=== PATIENT | female | born 1935 | race Caucasian/White ===

== ENCOUNTER 2016-07-13 15:26 | Inpatient (IN) | payer MEDICARE, BC ==
[2016-07-13] MEDS ORDERED: SODIUM CHLORIDE 0.9% 1,000 ML IV STA (16:06)
--- NOTE | 2016-07-13 16:10 | ED ---
General Adult HPI - General Chief complaint: Neuro Symptoms/Deficit Stated complaint: Poss CVA Time Seen by Provider: 07/13/16 15:59 Source: patient, RN notes reviewed Mode of arrival: wheelchair Limitations: no limitations - History of Present Illness Initial comments: Patient is a pleasant 81-year-old female presenting to the emergency Department with left arm problems. Patient had an episode last night lasting around 30 minutes. Patient had paresthesias with associated weakness and coordination problems of her left arm only. Symptoms then resolved. Patient had another episode one hour ago. Patient states she only had paresthesias and coordination problems this time. No weakness. Symptoms have again resolved after half an hour and currently is symptom-free. Patient does have a history of TIA. No pain. No headache. No confusion. No visual process. No speech problems. Patient questions if she had some difficulty with balance walking this morning. - Related Data Home Medications Medication Instructions Recorded Confirmed Aspirin EC [Ecotrin] 325 mg PO HS 07/13/16 07/13/16 Atorvastatin [Lipitor] 80 mg PO HS 07/13/16 07/13/16 Cholecalciferol [Vitamin D3] 1,000 unit PO HS 07/13/16 07/13/16 Levothyroxine Sodium [Synthroid] 100 mcg PO DAILY 07/13/16 07/13/16 Vit C/E/Zn/Coppr/Lutein/Zeaxan 1 cap PO HS 07/13/16 07/13/16 [Preservision Areds 2 Softgel] Allergies Allergy/AdvReac Type Severity Reaction Status Date / Time No Known Allergies Allergy Verified 07/13/16 15:40 Review of Systems ROS Statement: Those systems with pertinent positive or pertinent negative responses have been documented in the HPI. ROS Other: All systems not noted in ROS Statement are negative. Constitutional: Denies: fever Eyes: Denies: eye pain ENT: Denies: ear pain Respiratory: Denies: cough Cardiovascular: Denies: chest pain Endocrine: Denies: fatigue Gastrointestinal: Denies: abdominal pain Genitourinary: Denies: dysuria Musculoskeletal: Denies: back pain Skin: Denies: rash Neurological: Reports: weakness, paresthesias. Denies: headache, confusion Past Medical History Past Medical History: CVA/TIA, Hyperlipidemia, Thyroid Disorder History of Any Multi-Drug Resistant Organisms: None Reported Past Surgical History: Appendectomy, Tonsillectomy Additional Past Surgical History / Comment(s): thryrodectomy, Past Psychological History: No Psychological Hx Reported Smoking Status: Former smoker Past Alcohol Use History: Occasional General Exam Limitations: no limitations General appearance: alert, in no apparent distress Head exam: Present: atraumatic, normocephalic Eye exam: Present: normal appearance, PERRL, EOMI. Absent: nystagmus ENT exam: Present: normal oropharynx Neck exam: Present: normal inspection Respiratory exam: Present: normal lung sounds bilaterally Cardiovascular Exam: Present: normal rhythm, bradycardia GI/Abdominal exam: Present: soft. Absent: tenderness Extremities exam: Present: normal inspection Neurological exam: Present: alert, oriented X3, CN II-XII intact. Absent: motor sensory deficit Expanded Patient oriented to: Present: person, place, time Speech: Present: fluid speech Cranial nerves: EOM's Intact: Normal, Facial Sensation: Normal Sensory exam: Upper Extremity Light Touch: Normal, Lower Extremity Light Touch: Normal Motor strength exam: RUE: 5, LUE: 5, RLE: 5, LLE: 5 Eye Response: (4) open spontaneously Motor Response: (6) obeys commands Verbal Response: (5) oriented Psychiatric exam: Present: normal affect, normal mood Skin exam: Absent: rash Course Vital Signs 07/13/16 07/13/16 15:27 15:45 Temperature 97.8 F Pulse Rate 61 59 L Respiratory 17 18 Rate Blood Pressure 194/84 167/71 O2 Sat by Pulse 97 97 Oximetry EKG Findings - EKG Comments: EKG Findings:: Sinus bradycardia 54. UT 142. QRS 86. QT 452. QTC 428. Normal axis. Normal QRS. Normal ST-T. Medical Decision Making - Medical Decision Making Patient reevaluated and remained symptom-free. Case discussed in detail with Dr. guidry, who will admit for Dr. Mendoza. Patient updated. - Lab Data Result diagrams: 07/13/16 15:58 07/13/16 15:58 Lab Results 07/13/16 07/13/16 07/13/16 Range/Units 15:58 15:58 15:58 WBC 6.9 (3.8-10.6) k/uL RBC 4.54 (3.80-5.40) m/uL Hgb 13.9 (11.4-16.0) gm/dL Hct 43.0 (34.0-46.0) % MCV 94.7 (80.0-100.0) fL MCH 30.6 (25.0-35.0) pg MCHC 32.3 (31.0-37.0) g/dL RDW 13.7 (11.5-15.5) % Plt Count 207 (150-450) k/uL Neutrophils % 64 % Lymphocytes % 23 % Monocytes % 5 % Eosinophils % 6 % Basophils % 1 % Neutrophils # 4.4 (1.3-7.7) k/uL Lymphocytes # 1.6 (1.0-4.8) k/uL Monocytes # 0.3 (0-1.0) k/uL Eosinophils # 0.4 (0-0.7) k/uL Basophils # 0.0 (0-0.2) k/uL PT 11.2 (9.0-12.0) sec INR 1.1 (<1.1) APTT 24.4 (22.0-30.0) sec Sodium 140 (137-145) mmol/L Potassium 4.5 (3.5-5.1) mmol/L Chloride 106 (98-107) mmol/L Carbon Dioxide 25 (22-30) mmol/L Anion Gap 9 mmol/L BUN 17 (7-17) mg/dL Creatinine 0.81 (0.52-1.04) mg/dL Est GFR (MDRD) Af Amer >60 (>60 ml/min/1.73 sqM) Est GFR (MDRD) Non-Af >60 (>60 ml/min/1.73 sqM) Glucose 93 (74-99) mg/dL Calcium 9.5 (8.4-10.2) mg/dL Total Bilirubin 0.6 (0.2-1.3) mg/dL AST 29 (14-36) U/L ALT 25 (9-52) U/L Alkaline Phosphatase 88 (38-126) U/L Total Protein 6.9 (6.3-8.2) g/dL Albumin 3.8 (3.5-5.0) g/dL - Radiology Data Radiology results: image reviewed (Chest x-ray shows left lower lobe atelectasis. Computed tomography scan the brain shows no acute process. Probable small vessel disease.) Disposition Clinical Impression: Transient cerebral ischemia Disposition: ADMITTED IP TO THIS HOSP
[2016-07-13 16:17] LABS: Basophils % (A) 1 %; CH 30.4; CHCM 32.3; Eosinophils # (A) 0.4 k/uL (0-0.7); Eosinophils % (A) 6 %; HDW 2.26; HGB 13.9 gm/dL (11.4-16.0); Luc # (Auto) 0.12; Luc % (Auto) 2; Lymphocytes # (A) 1.6 k/uL (1.0-4.8); Lymphocytes % (A) 23 %; MCH 30.6 pg (25.0-35.0); MCHC 32.3 g/dL (31.0-37.0); MCV 94.7 fL (80.0-100.0); Mean Platelet Volume 7.9; Monocytes # (A) 0.3 k/uL (0-1.0); Monocytes % (A) 5 %; Neutrophils # (A) 4.4 k/uL (1.3-7.7); Neutrophils % (A) 64 %; RBC 4.54 m/uL (3.80-5.40); RDW 13.7 % (11.5-15.5); WBC 6.9 k/uL (3.8-10.6); WBC (Perox) 6.97
[2016-07-13 16:26] LABS: ALT 25 U/L (9-52); AST 29 U/L (14-36); Alkaline Phosphatase 88 U/L (38-126); Anion Gap 9 mmol/L; Blood Urea Nitrogen 17 mg/dL (7-17); Calcium 9.5 mg/dL (8.4-10.2); Carbon Dioxide 25 mmol/L (22-30); Chloride 106 mmol/L (98-107); Glucose 93 mg/dL (74-99); INR 1.1 (<1.1); Non-African American GFR(MDRD) >60 (>60 ml/min/1.73 sqM); Partial Thromboplastin Time 24.4 sec (22.0-30.0); Potassium 4.5 mmol/L (3.5-5.1); Prothrombin Time 11.2 sec (9.0-12.0); Sodium 140 mmol/L (137-145); Total Bilirubin 0.6 mg/dL (0.2-1.3); Total Protein 6.9 g/dL (6.3-8.2)
[2016-07-13 16:37] LABS: Creatine Kinase 83 U/L (30-135)
--- NOTE | 2016-07-13 16:45 | CT ---
EXAMINATION TYPE: CT brain wo con DATE OF EXAM: 07/13/2016 4:25 PM COMPARISON: NONE HISTORY: Patient complains of left side weakness and numbness. Patient has a history of prior stroke . CT DLP: 955.1 mGycm Automated exposure control for dose reduction was used. FINDINGS: There is no acute intracranial hemorrhage, mass effect, or midline shift identified. The ventricles and sulci are within normal limits in size. Periventricular white matter demyelination is present. T here are cerebral vascular calcifications present. There is likely age-related atrophy. The globes ar e intact and the visualized sinuses are clear. IMPRESSION: No acute intracranial hemorrhage, mass effect, or midline shift is seen. Probable chronic small vesse l ischemia.
--- NOTE | 2016-07-13 16:46 | XR ---
EXAMINATION TYPE: XR chest 2V DATE OF EXAM: 07/13/2016 4:29 PM COMPARISON: NONE HISTORY: Altered mental status TECHNIQUE: Frontal and lateral views of the chest are obtained. FINDINGS: There is no focal air space opacity, pleural effusion, or pneumothorax seen. The cardiac silhouette size is within normal limits. There are overlying cardiac leads. Suspect some minimal pat frances increased density left lung base. Prominent lung volumes may be indicative of COPD. The aorta is dense. The osseous structures are intact. IMPRESSION: There may be left lower lobe atelectasis, follow-up as indicated should pneumonia be ca pected.
[2016-07-13 16:50] LABS: Creatine Kinase MB 1.1 ng/mL (0.0-2.4); Troponin I <0.012 ng/mL (0.000-0.034)
[2016-07-13] MEDS ORDERED: ASPIRIN 325 MG TAB PO STA (16:59)
[2016-07-13 18:59] VITALS: BMI 33.9
[2016-07-13] MEDS: SODIUM CHLORIDE 0.9% 1,000 ML IV SCH (20:11)
[2016-07-14] MEDS: SODIUM CHLORIDE 0.9% 1,000 ML IV SCH ×2 (05:04→17:12)
[2016-07-14] MEDS ORDERED: ASPIRIN 325 MG TAB PO SCH ×2 (09:00→21:00)
[2016-07-14] MEDS: LEVOTHYROXINE 100 MCG TAB PO SCH (09:35)
--- NOTE | 2016-07-14 13:12 | P.CNNES ---
History of Present Illness Consult date: 07/14/16 Requesting physician: Angel Glynn Reason for Consult: CVA/TIA History of Present Illness: Patient is a pleasant 81-year-old female who is being evaluated by the neurology service on 07/14/2016 per the request of Dr. Glynn for CVA/TIA. Patient states she does have history of TIA. While unloading her car, patient reports having an episode of left upper extremity weakness and paresthesia. Patient stated symptoms resolved in less than 15 minutes. She does report that symptoms returned the following morning and she came to [facility] for further evaluation. Patient reports her symptoms are currently resolved. She denies headache or confusion. Patient denies visual difficulties. Patient does states she was unsteady on her feet with ambulation this morning. Patient states she takes aspirin in the home setting. Vital signs on admission, patient was afebrile, pulse rate 63, respiratory rate 17, blood pressure 101/78. Patient's laboratory workup on admission was unremarkable. At the time of my evaluation, patient is resting comfortably in bed and appears to be in no acute distress. Review of Systems REVIEW OF SYSTEMS: Otherwise unremarkable and noncontributory. Past Medical History Past Medical History: CVA/TIA, Hyperlipidemia, Thyroid Disorder History of Any Multi-Drug Resistant Organisms: None Reported Past Surgical History: Appendectomy, Tonsillectomy Additional Past Surgical History / Comment(s): thryrodectomy, Past Anesthesia/Blood Transfusion Reactions: No Reported Reaction Past Psychological History: No Psychological Hx Reported Smoking Status: Former smoker Past Alcohol Use History: Occasional Past Drug Use History: None Reported - Past Family History Father Family Medical History: Myocardial Infarction ([place]) Additional Family Medical History / Comment(s): HAD STENT PLACEMENT IN 2005 OR 2006 AFTER NH IS UNSURE Mother Family Medical History: Memory Impairment, Vascular Disorder Medications and Allergies Home Medications Medication Instructions Recorded Confirmed Type Aspirin EC [Ecotrin] 325 mg PO HS 07/13/16 07/13/16 History Atorvastatin [Lipitor] 80 mg PO HS 07/13/16 07/13/16 History Cholecalciferol [Vitamin D3] 1,000 unit PO HS 07/13/16 07/13/16 History Levothyroxine Sodium [Synthroid] 100 mcg PO DAILY 07/13/16 07/13/16 History Vit C/E/Zn/Coppr/Lutein/Zeaxan 1 cap PO HS 07/13/16 07/13/16 History [Preservision Areds 2 Softgel] Allergies Allergy/AdvReac Type Severity Reaction Status Date / Time No Known Allergies Allergy Verified 07/13/16 15:40 Physical Examination - Vital Signs Vital Signs: Vital Signs Temp Pulse Pulse Resp BP BP Pulse Ox 07/14/16 09:59 62 07/14/16 08:00 96.4 F L 59 L 125/59 96 07/14/16 07:59 56 L 07/14/16 04:00 97.7 F 52 L 17 147/67 96 07/14/16 00:00 57 L 16 07/13/16 23:59 97.1 F L 57 L 16 132/63 96 07/13/16 20:00 97.6 F 63 17 101/78 96 07/13/16 19:59 97.6 F 63 17 101/78 96 07/13/16 17:59 70 16 162/72 07/13/16 17:18 97.4 F L 67 16 157/74 97 07/13/16 17:15 98.5 F 07/13/16 17:06 60 18 169/74 100 Intake and Output 07/13/16 07/14/16 07/14/16 22:59 06:59 14:59 Intake Total 200 1740 240 Balance 200 1740 240 Intake: IV 200 1200 Sodium Chloride 0.9% 1, 200 1200 000 ml @ 100 mls/hr IV . Q10H [facility] Rx#:[id number] Oral 540 240 Other: Voiding Method Toilet Toilet # Voids 1 1 Weight 92.5 kg 91.7 kg PHYSICAL EXAM: GENERAL APPEARANCE: Patient is a well-developed, female who appears to be in no acute distress. HEENT: Normocephalic, atraumatic, no facial asymmetry is seen. Neck is supple with no masses felt. CARDIOVASCULAR: Regular rate and rhythm. ABDOMEN: Nontender, nondistended. EXTREMITIES: Show no edema or clubbing. NEUROLOGICAL EXAM: Patient is awake, alert, and oriented 3. Speech and language are normal. No obvious facial asymmetry is seen on cranial nerve testing. Strength is full in all 4 extremities. No sensory deficit to light touch in all 4 extremities. No seizures or tremors noted. Results - Laboratory Findings CBC and BMP: 07/13/16 15:58 07/13/16 15:58 Assessment and Plan Plan: Impression: 1. CVA/TIA 2. History of TIA 3. Hyperlipidemia 4. Left upper extremity weakness, resolved Recommendations: It does appear patient had episode of left upper extremity weakness and paresthesia. As you recall, CT of the brain showed no acute intracranial hemorrhage, mass effect, or midline shift. CT did show probable chronic small vessel ischemic disease. Patient was on aspirin at home. I will change aspirin to Plavix 75 mg by mouth daily. I will order an EEG, fasting lipid panel, and serum homocysteine level. I will order an MRI of the brain and carotid Dopplers. Continue neurological checks. I recommend physical therapy to evaluate and treat. Patient does deny difficulty swallowing. I will continue to follow with you. Further recommendations to follow. Thank you for allowing me to participate in the care of your patient. Feel free to call with any questions or concerns. I performed an examination of the patient and discussed the management with the MORTICIAN INVESTIGATOR. I have reviewed the MORTICIAN INVESTIGATOR notes and agree with the findings and plan of care.
[2016-07-14 15:00] LABS: Glucose,Whole Blood 90 mg/dL (75-99)
[2016-07-14] MEDS: CLOPIDOGREL 75 MG TAB PO SCH (17:11)
[2016-07-14] MEDS ORDERED: RX INFO: IV CONTRAST WAS GIVEN 1 EACH MISC MISCELLANE PRN (18:54)
[2016-07-14] MEDS: CHOLECALCIFEROL 1,000 UNIT TAB PO SCH (19:51)
[2016-07-14] MEDS: ENOXAPARIN 40 MG/0.4 ML SYRINGE SQ SCH (19:51)
[2016-07-14] MEDS: ATORVASTATIN 80 MG TAB PO SCH (19:51)
--- NOTE | 2016-07-14 20:07 | CT ---
EXAMINATION TYPE: CT angio head neck DATE OF EXAM: 07/14/2016 7:51 PM COMPARISON: NONE HISTORY: Patient complains of left side body weakness and numbness. CT DLP: 361.1 mGycm Automated exposure control for dose reduction was used. TECHNIQUE: Performed with IV Contrast, patient injected with 65 mL of Omnipaque 350. There are 3-D post processed images.. FINDINGS: There is normal branching pattern of the great vessels on the aortic arch. Thoracic aorta is atheroma tous. There is bilateral patency of the vertebral arteries. There is bilateral patency of the common internal and external carotid arteries. There is mild plaque at the carotid artery bifurcations with luminal narrowing of 10-20%. There is no evidence of dissection. There is arterial flow in the vertebrobasilar artery system. There is arterial flow in the anterior m iddle and posterior cerebral arteries. There is normal contrast opacification of the venous sinuses. I see no sign of aneurysm or neovascularity. IMPRESSION: MILD PLAQUE AT THE CAROTID ARTERY BIFURCATIONS. NO EVIDENCE OF HEMODYNAMICALLY SIGNIFICANT STENOSIS. NEGATIVE CT ANGIOGRAM OF THE BRAIN.
--- NOTE | 2016-07-14 21:46 | HP ---
DATE OF ADMISSION: 07/13/2016 PRESENTING COMPLAINT: Unsteady. HISTORY OF PRESENTING COMPLAINT: A very pleasant 81-year-old patient of Dr. Mendoza with prior history of stable conditions include hyperlipidemia, hypothyroid. Patient 2 days ago developed left arm weakness and actually got better. Let it go through next day, that is yesterday. Again after lunch noticed the left arm weakness. At the same time, she noticed that she was stumbling and also numbness in the left side of the face. Numbness is still present on the face and left arm weakness not completely recovered. It has been quite well over 24 hours. After when I examined the patient earlier today and prior to my dictation, the nurse called me, the patient had another episode of the same date. The being admitted for a stroke. Initial CT scan was negative. Patient did not report any change in vision. No change in speech. Able to swallow. REVIEW OF SYSTEMS: CONSTITUTIONAL: None. HEENT: None. RESPIRATORY: None. CARDIOVASCULAR: None. GASTROINTESTINAL: None. GENITOURINARY: None. MUSCULOSKELETAL: None. Dermatological: None. HEMATOLOGICAL: None. LYMPHATIC: None. PSYCHIATRY: None. NEUROLOGICAL: As above. Past medical history of TIA, hyperlipidemia, hyperthyroid leading to then hypothyroidism. Past surgeries thyroidectomy, tonsillectomy, appendectomy. SOCIAL HISTORY: Earl lives by herself. Smoked for 33 years; stopped 27 years ago. Alcohol occasional. FAMILY HISTORY: Myocardial infarction. Home medications: 1. PreserVision softgel 1 capsule p.o. q.h.s. 2. Synthroid 100 mcg p.o. daily. 3. Vitamin D3 1000 units p.o. q.h.s. 4. Lipitor 80 mg q.h.s. 5. Aspirin 325 mg p.o. q.h.s. ALLERGIES: None. PHYSICAL EXAMINATION: Vital signs on presentation: Temperature 97.8, pulse 61, respiratory rate 17, blood pressure 167/71, pulse ox 97% on room air. GENERAL APPEARANCE: Well built, BMI of 32.6, sitting up, not in distress. EYES: Pupils equal. Conjunctivae normal. HEENT: Oral cavity normal. NECK: JVD not raised. RESPIRATORY: Effort normal. LUNGS: Normal. CARDIOVASCULAR: First and second sounds are normal. No edema. ABDOMEN: Soft, nontender. Liver and spleen not palpable. LYMPHATIC: No lymph nodes palpable in neck or axillae. PSYCHIATRY: Alert and oriented times three. Mood and affect normal. NEUROLOGICAL: Pupils equal. Cranial nerves grossly intact except for decreased sensation left side of her face. NEUROLOGICAL: Power in the left arm is 4/5. Otherwise, reflexes are equal. The patient was having some unsteadiness of gait earlier. INVESTIGATIONS: White count 6.9. Hemoglobin 13.9. Potassium 4.5, BUN and creatinine are normal. EKG shows normal sinus rhythm. CT scan of the brain nil acute. ASSESSMENT: 1. Acute stroke in the distribution of the right middle cerebral artery though this could well be a left brainstem ischemia given involving the left side of the face likely ischemic, in nature in a right-handed patient. 2. Essential hypertension, uncontrolled on presentation. 3. Hyperlipidemia. 4. Hypothyroidism. 5. Sinus bradycardia physiological. PLAN: Patient is already on Lipitor. The patient switched from aspirin to Plavix. I will order a CT angiogram of the brain. Neuro checks are in place. Neurology; Dr. Garvey was consulted. Also patient's TSH and lipid panel has been ordered. PT/OT has been being consulted. Care was discussed with the patient. Copy to Dr. Mendoza.
--- NOTE | 2016-07-15 09:00 | P.CRDCN ---
History of Present Illness Consult date: 07/15/16 Requesting physician: Angel Glynn Reason for Consult (text): CVA Chief complaint: left-sided arm and leg weakness History of present illness: This is a pleasant 81-year-old female with history of coronary artery disease with prior stent placement in 2007, hyperlipidemia, hypothyroidism prior thyroidectomy, who follows with Dr. Ramesh in the office. She presents to the hospital on this occasion with symptoms of left arm numbness and weakness and associated left leg weakness.The patient denies any difficulty in speaking, no visual disturbance.She denies any shortness of breath or chest discomfort. Patient states she recently returned home from a long trip, had no symptoms while away.EKG on presentation here showed a normal sinus rhythm, sinus bradycardia with no acute changes.CAT scan of the brain was performed which did not reveal any acute intracranial hemorrhage mass effect or midline shift.CTA of the head and neck was performed which revealed mild plaque at the carotid artery bifurcations with no evidence of hemodynamically significant stenosis. Negative CT angiogram of the brain. Chest x-ray suggests possible left lower lobe atelectasis.Blood pressure on arrival here 194/84 with a heart rate in the 60s, 97% on room air.pressure this morning 124/60 with a heart rate in the 60s. At the time of my examination this morning, patient continues to have mild weakness in the left arm, complains of feeling tired, otherwise back to her normal self. Patient was noted on the monitor to have a run of wide complex tachycardia, 10 beat.Laboratory data was reviewed, potassium 4.5, BUN 17 , creatinine 0.8. Troponin 0.012. TSH 1.5. Past Medical History Past Medical History: CVA/TIA, Hyperlipidemia, Thyroid Disorder History of Any Multi-Drug Resistant Organisms: None Reported Past Surgical History: Appendectomy, Tonsillectomy Additional Past Surgical History / Comment(s): thryrodectomy, Past Anesthesia/Blood Transfusion Reactions: No Reported Reaction Past Psychological History: No Psychological Hx Reported Smoking Status: Former smoker Past Alcohol Use History: Occasional Past Drug Use History: None Reported - Past Family History Father Family Medical History: Myocardial Infarction (MD) Additional Family Medical History / Comment(s): HAD STENT PLACEMENT IN 2005 OR 2006 AFTER MD IS UNSURE Mother Family Medical History: Memory Impairment, Vascular Disorder Medications and Allergies Home Medications Medication Instructions Recorded Confirmed Type Aspirin EC [Ecotrin] 325 mg PO HS 07/13/16 07/13/16 History Atorvastatin [Lipitor] 80 mg PO HS 07/13/16 07/13/16 History Cholecalciferol [Vitamin D3] 1,000 unit PO HS 07/13/16 07/13/16 History Levothyroxine Sodium [Synthroid] 100 mcg PO DAILY 07/13/16 07/13/16 History Vit C/E/Zn/Coppr/Lutein/Zeaxan 1 cap PO HS 07/13/16 07/13/16 History [Preservision Areds 2 Softgel] Allergies Allergy/AdvReac Type Severity Reaction Status Date / Time No Known Allergies Allergy Verified 07/13/16 15:40 Physical Exam Vitals: Vital Signs Temp Pulse Resp BP Pulse Ox 07/15/16 04:00 98 F 64 16 124/67 98 07/15/16 00:00 60 16 138/74 97 07/14/16 19:59 98.2 F 55 L 16 142/68 96 07/14/16 17:59 63 07/14/16 15:59 52 L 07/14/16 13:59 49 L 07/14/16 12:00 61 140/68 96 07/14/16 11:59 51 L 07/14/16 09:59 62 Intake and Output 07/14/16 07/15/16 07/15/16 22:59 06:59 14:59 Intake Total 420 Balance 420 Intake: IV 300 Sodium Chloride 0.9% 1, 300 000 ml @ 100 mls/hr IV . Q10H [facility] Rx#:[id number] Oral 120 Other: # Voids 1 Weight 92.1 kg PHYSICAL EXAMINATION: HEENT: [Head is atraumatic, normocephalic. Pupils equal, round. Neck is supple. There is no elevated jugular venous pressure.] HEART EXAMINATION:heart S1 and S2 systolic murmur is heard. CHEST EXAMINATION:[ Lungs are clear to auscultation and precussion. No chest wall tenderness is noted on palpation or with deep breathing.] ABDOMEN: [ Soft, nontender. Bowel sounds are heard. No organomegaly noted]. EXTREMITIES:[ 2+ peripheral pulses with no evidence of peripheral edema and no calf tenderness noted].Mild weakness noted in the left upper extremity. NEUROLOGIC [patient is awake, alert and oriented -3.] . Results 07/13/16 15:58 07/13/16 15:58 Lipids 07/15/16 Range/Units 05:26 Triglycerides 38 (<150) mg/dL Cholesterol 117 (<200) mg/dL HDL Cholesterol 56 (40-60) mg/dL Current Medications Generic Name Dose Route Start Last Admin Trade Name Freq PRN Reason Stop Dose Admin Atorvastatin Calcium 80 mg 07/14/16 21:00 07/14/16 19:51 Lipitor PO 80 mg HS [facility] Administration Cholecalciferol 1,000 unit 07/14/16 21:00 07/14/16 19:51 Vitamin D3 PO 1,000 unit HS [facility] Administration Clopidogrel Bisulfate 75 mg 07/14/16 13:15 07/14/16 17:11 Plavix PO 75 mg DAILY [facility] Administration Enoxaparin Sodium 40 mg 07/14/16 19:00 07/14/16 19:51 Lovenox SQ 40 mg DAILY [facility] Administration Levothyroxine Sodium 100 mcg 07/14/16 09:00 07/14/16 09:35 Synthroid PO 100 mcg DAILY [facility] Administration Miscellaneous Information 1 each 07/14/16 18:54 Rx Info: Iv Contrast Was Given MISCELLANE 07/16/16 18:54 DAILY PRN Per Protocol Intake and Output 07/14/16 07/15/16 07/15/16 22:59 06:59 14:59 Intake Total 420 Balance 420 Intake: IV 300 Sodium Chloride 0.9% 1, 300 000 ml @ 100 mls/hr IV . Q10H [facility] Rx#:[id number] Oral 120 Other: # Voids 1 Weight 92.1 kg EKG Interpretations (text) EKG shows normal sinus rhythm with no acute changes. Assessment and Plan Plan: assessment and plan #1CVA/TIA #2 history of TIA #3 hyperlipidemia #4 hypothyroidism #5 left upper and lower extremity weakness, mostly resolved this morning. #6 history of myocardial infarction with stent placement in 2007 #7 10 complex run of wide-complex tachycardia. Plan We will obtain an echocardiogram with Doppler study. We will continue to monitor for any tachycardia or bradycardia arrhythmias.the patient has not been on a beta kasie in the past because of bradycardia, we will start 12-1/2 mg of Lopressor now. She has also been advised to undergo a transesophageal echocardiographic study, this will be performed tomorrow by Dr. Ramesh. The risks and the benefits were explained to the patient in detail Further recommendations to follow. DNP note has been reviewed, I agree with a documented findings and plan of care. Patient was seen and examined.
[2016-07-15] MEDS: ENOXAPARIN 40 MG/0.4 ML SYRINGE SQ SCH (09:22)
[2016-07-15] MEDS: LEVOTHYROXINE 100 MCG TAB PO SCH (09:22)
[2016-07-15] MEDS: CLOPIDOGREL 75 MG TAB PO SCH (09:22)
--- NOTE | 2016-07-15 10:46 | ECHOF ---
Referral Reason:cva MEASUREMENTS -------- HEIGHT: 165.1 cm WEIGHT: 92.1 kg BP: IVSd: 0.9 cm (0.6 - 1.1) LVIDd: 3.4 cm (3.9 - 5.3) LVPWd: 1.0 cm (0.6 - 1.1) IVSs: 1.7 cm LVIDs: 1.7 cm LVPWs: 1.8 cm Ao Diam: 3.3 cm (2.0 - 3.7) AV Cusp: 1.6 cm (1.5 - 2.6) LA Diam: 3.4 cm (2.7 - 3.8) MV EXCURSION: 12.495 mm (> 18.000) MV EF SLOPE: 73 mm/s (70 - 150) EPSS: 0.8 cm MV E Spencer: 0.95 m/s MV DecT: 255 ms MV A Spencer: 0.81 m/s MV E/A Ratio: 1.17 RAP: 5.00 mmHg RVSP: 24.24 mmHg FINDINGS -------- Sinus rhythm. This was a technically good study. Left ventricular wall thickness is normal. Overall left ventricular systolic function is normal with, an EF between 55 - 60 %. The right ventricle is normal in size and function. The left atrium is normal in size. The right atrium is normal in size. Aortic valve is trileaflet and is mildly thickened. The mitral valve leaflets are mildly thickened. Mild mitral regurgitation is present. Mild tricuspid regurgitation present. The right ventricular systolic pressure, as measured by Doppler, is 24.24mmHg. Pulmonic valve appears structurally normal. The aortic root size is normal. The pericardium is normal. CONCLUSIONS -------- 1. Sinus rhythm. 2. Mild mitral regurgitation is present. 3. Mild tricuspid regurgitation present. 4. The right ventricular systolic pressure, as measured by Doppler, is 24.24mmHg. 5. Pulmonic valve appears structurally normal. 6. The aortic root size is normal. 7. The pericardium is normal. 8. This was a technically good study. 9. Left ventricular wall thickness is normal. 10. Overall left ventricular systolic function is normal with, an EF between 55 - 60 %. 11. The right ventricle is normal in size and function. 12. The left atrium is normal in size. 13. The right atrium is normal in size. 14. Aortic valve is trileaflet and is mildly thickened. 15. The mitral valve leaflets are mildly thickened. SENIOR STRATEGY MANAGER: Xuan Rice RDCS
[2016-07-15] MEDS: METOPROLOL TARTRATE 12.5 MG TAB PO SCH ×2 (12:06→12:34)
--- NOTE | 2016-07-15 12:06 | CDI ---
In responding to this query, please exercise your independent professional judgment. The [facility] Coding Staff and Clinical Documentation Specialists appreciate your assistance in clarifying documentation, maintaining compliance with coding guidelines, accurately documenting patients condition and capturing severity of illness. The fact that a question is asked does not imply that any particular answer is desired or expected. Communication forms are a method of clarifying documentation and are not made part of the Legal Health Record. Thank you in advance for your clarification. Last Revision, January 2015 Greg Mensah [address] [facility] [place] [address] Documentation Clarification Form Date: 07/15/2016 11:46:00 AM From: Alexander Harley, RN, BSN, CDI Admit Date: 07/13/2016 4:52:00 PM Patient Name: Nhi Espinal Visit Number: [id number] Dr. Angel Glynn: History: 81 yo female with a history of TIA, hyperlipidemia, CAD and former smoker presents with c/o left arm weakness, stumbling and left facial numbness. She is being worked up for an acute stroke in the distribution of the right middle cerebral artery. Clinical Indicators: Per cardiology note: the patient presented with "left upper and left lower extremity weakness". She has unsteadiness of gait. Treatment: neurology consult, Plavix, neuro checks and PT In order to capture the severity of condition, please clarify if any of the following are present: Hemiplegia or Hemiparesis. If so, please specify if spastic or flaccid, if known. Ataxia Apraxia (specify gait, limb, etc) Monoplegia Other, please specify Unable to determine Please document in your progress notes and discharge summary in order to capture severity of illness and risk of mortality. Include clinical findings that support your diagnosis. FYI: Press F11 to launch patient chart. Place X here if this finding has no clinical significance, is not applicable or if you are not able to provide any additional documentation. MTDD
--- NOTE | 2016-07-15 15:58 | P.PN ---
Subjective Principal diagnosis: Patient is a pleasant 81-year-old female who is being followed by the neurology service for CVA. Patient does have history of TIA. Patient presented to [facility] emergency room with left-sided weakness and left facial numbness. Patient states symptoms have resolved except for mild left facial paresthesia. Patient states she was taking aspirin in the home setting. CT of the brain showed no acute intracranial hemorrhage but did show probable chronic small vessel ischemia. Patient is awaiting her MRI. CTA was done and showed mild plaque at the carotid artery bifurcation. Carotid Doppler showed no evidence of hemodynamically significant stenosis. Negative CT angiogram of the brain. EEG was done and is normal. Reportedly, patient had a run of wide complex tachycardia and cardiology was consulted. Patient will have transesophageal echocardiogram done tomorrow. At the time of my evaluation , patient is sitting up in the chair at the bedside and appears to be in no acute distress. Objective - Vital Signs Vital signs: Vital Signs Temp 96.9 F L 07/15/16 11:00 Pulse 60 07/15/16 11:00 Resp 18 07/15/16 11:00 BP 154/70 07/15/16 11:00 Pulse Ox 98 07/15/16 11:00 Intake & Output 07/14/16 07/15/16 07/15/16 18:59 06:59 18:59 Intake Total 580 300 180 Balance 580 300 180 Weight 92.1 kg Intake: IV 300 Sodium Chloride 0.9% 1, 300 000 ml @ 100 mls/hr IV . Q10H MELVI Rx#:[id number] Intake, IV Titration 100 Amount Sodium Chloride 0.9% 1, 100 000 ml @ 100 mls/hr IV . Q10H MELVI Rx#:[id number] Oral 480 180 Other: Voiding Method Toilet # Voids 1 1 - Exam PHYSICAL EXAM: GENERAL APPEARANCE: Patient is a well-developed, female who appears to be in no acute distress. HEENT: Normocephalic, atraumatic, no facial asymmetry is seen. Neck is supple with no masses felt. CARDIOVASCULAR: Regular rate and rhythm. ABDOMEN: Nontender, nondistended. EXTREMITIES: Show no edema or clubbing. NEUROLOGICAL EXAM: Patient is awake, alert, and oriented 3. Speech and language are normal. No obvious facial asymmetry seen on cranial nerve testing. Patient does report mild left facial paresthesia that continues. Strength is full in all 4 extremities. No sensory deficit to light touch in all 4 extremities. No seizures or tremors noted. - Labs CBC & Chem 7: 07/13/16 15:58 07/13/16 15:58 Assessment and Plan Plan: Impression: 1. CVA/TIA 2. History of TIA 3. Hyperlipidemia 4. Left upper extremity weakness, resolved Recommendations: It does appear patient had episode of left sided weakness and paresthesia. As you recall, CT of the brain showed no acute intracranial hemorrhage, mass effect, or midline shift. CT did show probable chronic small vessel ischemic disease. CTA showed no evidence of hemodynamically significant stenosis. Negative CT angiogram of the brain. I recommend patient continue Plavix 75 mg by mouth daily. EEG is normal. Her fasting lipid panel is normal and I recommend continuing on statin therapy. Serum homocysteine level is pending. MRI of the brain will be done this evening. Continue neurological checks. I recommend physical therapy to evaluate and treat. Patient denies difficulty swallowing. Continue cardiology workup. I will continue to follow with you. Further recommendations to follow. I performed an examination of the patient and discussed the management with the FURNITURE INSTALLER. I have reviewed the FURNITURE INSTALLER notes and agree with the findings and plan of care.
--- NOTE | 2016-07-15 16:58 | MR ---
EXAMINATION TYPE: MR brain wo con DATE OF EXAM: 07/15/2016 4:48 PM COMPARISON: NONE HISTORY: Left sided weakness/numbness, hx of strokes CONTRAST: Performed utilizing mL intravenous gadolinium contrast. TECHNIQUE: Multiplanar, multiecho imaging on a 3.0 Sully magnet is performed through the brain. Stud y is performed within 24 hours of arrival to the hospital. The craniovertebral junction is normal. The pituitary is normal. Diffusion-weighted imaging is performed. There are 2 small areas of hyperintensity within the right centrum semiovale compatible with acute ischemic changes. Couple of more punctate hyperintensities ar e slightly more anterior Periventricular white matter hyperintensities are present on T2 and inversion recovery weighted seque nces. Findings can be compatible with chronic white matter changes. Ventricles and sulci are prominent for the patient age. IMPRESSIONS: 1. There are 2-3 acute ischemic changes within the deep white matter of the right centrum semiovale i dentified on diffusion-weighted imaging. 2. There is extensive chronic appearing white matter ischemic changes in the periventricular white ma tter bilaterally.
[2016-07-15] MEDS: ATORVASTATIN 80 MG TAB PO SCH (20:50)
[2016-07-15] MEDS: CHOLECALCIFEROL 1,000 UNIT TAB PO SCH (20:50)
--- NOTE | 2016-07-15 23:20 | EEG ---
DATE OF SERVICE: 07/15/2016 REASON FOR TESTING: Stroke. DESCRIPTION OF THE PROCEDURE: This EEG was performed using a 21-channel digital electroencephalograph, following international 10-20 system. DESCRIPTION OF THE RECORDING: From the beginning of the tracing, and with the patient's eyes closed, the background rhythm was mostly consisting of 9 to 10 Hz alpha frequency in the posterior occipital leads. No obvious asymmetry is seen. Photic stimulation was performed with no driving response seen. No pathological waves were elicited. Hyperventilation was not performed. Rare lead artifacts are seen. Movement artifacts are seen later in the tracing. The patient remains awake throughout the tracing. No epileptiform discharges were seen. Her EKG lead showed a regular rate and rhythm. INTERPRETATION: This awake EEG can be considered within normal limits. There was no asymmetry seen. No epileptiform discharges were noticed. The absence of epileptiform discharges does not rule out the diagnosis of epilepsy; therefore clinical correlation is recommended.
--- NOTE | 2016-07-16 07:21 | PN ---
DATE OF SERVICE: 07/15/2016 PRESENTING COMPLAINT: Recurrent left arm weakness, left sided weakness. INTERVAL HISTORY: This is a patient presented with recurrent weakness on the left side. Patient still has some weakness of the left side. CT angiogram from yesterday was negative but MRI did show evidence of 2 to 3 areas of infarct, even though small. Patient's not feeling back to herself. Review of systems done for constitutional, cardiovascular, GI, pulmonary, neurological; relevant findings as above. Current medications are reviewed and include Plavix and Lipitor. On examination, temperature 98.6, pulse 61, respiration 16, blood pressure 155/70, pulse ox 98% on room air. GENERAL APPEARANCE: Sitting up, not in distress. EYES: Pupils equal. Conjunctivae normal. NECK: JVD not raised. Mass not palpable. RESPIRATORY: Effort normal. LUNGS: Clear. CARDIOVASCULAR: First and second sounds normal. No edema. ABDOMEN: Soft, nontender. Liver and spleen not palpable. PSYCHIATRY: Alert and oriented x3. Mood and affect normal. NEUROLOGICAL: Power in the left side is 4/5. INVESTIGATIONS: MRI showing two to three small ischemic changes. TSH is normal. LDL 53. ASSESSMENT: 1. Acute stroke reflecting in the right ( ) in a right-handed patient, need to rule out embolic cause. 2. Essential hypertension. 3. Hyperlipidemia. 4. Hypothyroidism. 5. Sinus bradycardia physiological. PLAN: Continue current medication and treatment plan. Looks like Dr. Garvey has ordered a PATTIE. We will proceed with the same as it ( ) by the patient. The patient's 2-D echocardiogram was unremarkable.
[2016-07-16] MEDS ORDERED: SODIUM CHLORIDE 0.9% 1,000 ML IV ONE (07:25)
[2016-07-16] MEDS: BENZOCAINE SPRAY 100 APPLIC/CAN MUCOUS MEM ONE ×2 (07:35→08:01)
[2016-07-16] MEDS ORDERED: fentaNYL (PF) 50 MCG/ML 2 ML AMP IV ONE (08:00)
[2016-07-16] MEDS ORDERED: MIDAZOLAM 2 MG/2 ML VIAL IV ONE (08:00)
[2016-07-16] MEDS ORDERED: SODIUM CHLORIDE 0.9% 1,000 ML IV SCH (08:15)
--- NOTE | 2016-07-16 08:23 | P.PCN ---
Date of Procedure: 07/16/16 Preoperative Diagnosis: recurrent CVA Postoperative Diagnosis: The same. Procedure(s) Performed: PATTIE( Transoesophageal echocardiogram) Description of Procedure: INDICATION : This 81-year-old female has been having recurrent symptoms of TIA/ CVA. Carotid duplex study did not reveal any significant local pathology. Patient is advised to have PATTIE examination CONSENT:verbal consent was obtained from the patient PROCEDURE:patient was brought to the lab in a fasting state. She was prepped and draped in the usual fashion. The throat was sprayed with Hurricaine. Patient was given IV Versed and fentanyl for sedation. She got 1 mg of Versed and 50 mg of fentanyl. A lubricated Omni probe was introduced into the oropharynx and was advanced into the esophagus. Multiple views were obtained both from the esophagus and stomach.Color Doppler study was performed. Saline bubble injection was also performed. No immediate complications. Conscious sedation: The duration of the sedation was about 10 minutes FINDINGS:The aortic valve is trileaflet which seemed to function normally with trace aortic regurgitation.The mitral valve appears be normal with about 1plus mitral regurgitation. The tricuspid valve appeared to be normal. The interatrial septum appeared to be intact without any spontaneous shunt. Injection of the saline bubble injections did not reveal any evidence of shunt across the interatrial septum. Left atrial appendage appeared to be free of any clot. Left ankle function appear to be normal. The aorta showed moderate plaque. IMPRESSION:#1. No PFO #2. No clot in left atrial appendage #3. 1-2+ mitral regurgitation #4. Moderate plaque in the aorta #5. Preserved LV function PLAN:continue antiplatelet agents and lipid-lowering agents. Optimal control of blood pressure.
[2016-07-16] MEDS: CLOPIDOGREL 75 MG TAB PO SCH (08:55)
[2016-07-16] MEDS: ENOXAPARIN 40 MG/0.4 ML SYRINGE SQ SCH (08:55)
[2016-07-16] MEDS: LEVOTHYROXINE 100 MCG TAB PO SCH (08:55)
[2016-07-16] MEDS: METOPROLOL TARTRATE 12.5 MG TAB PO SCH ×2 (08:55→09:16)
[2016-07-16 09:03] VITALS: RESP 18
[2016-07-16 11:51] VITALS: BP 146/65; PULSE 72; TEMP 97
--- NOTE | 2016-07-16 21:42 | P.PN ---
Subjective Principal diagnosis: CVA Patient is an 81-year-old female being followed by neurology for CVA. Patient does have a history of TIA. Patient presented to the emergency room with left-sided weakness and left-sided facial numbness. Symptoms resolved except for mild left facial paresthesia. facial paresthesias still present today. Patient was taking aspirin at home. CT of the brain noted no acute intracranial hemorrhage but did show chronic small vessel ischemia. CTA was conducted and showed mild plaque at the carotid artery bifurcation. Carotid Doppler showed no hemodynamically significant stenosis. EEG was normal. Patient did have an episode of wide complex tachycardia and cardiology was consulted. Patient did have a PATTIE which was negative. MRI of the brain noted 2 -3 areas of deep white matter ischemic changes. Also noted were extensive chronic white matter ischemic changes bilaterally. Patient was supine in bed, resting in no acute distress. Patient was alert and oriented 3. Objective - Vital Signs Vital signs: Vital Signs Temp 97 F L 07/16/16 11:50 Pulse 72 07/16/16 11:50 Resp 18 07/16/16 11:50 BP 146/65 07/16/16 11:50 Pulse Ox 98 07/16/16 11:50 Intake & Output 07/16/16 07/16/16 07/17/16 06:59 18:59 06:59 Intake Total 340 Balance 340 Weight 90.9 kg Intake: Intake, IV Titration 120 Amount Sodium Chloride 0.9% 1, 120 000 ml @ 20 mls/hr IV . Q24H MELVI Rx#:[id number] Oral 220 Other: Voiding Method Toilet # Voids 1 - Exam Constitutional: AOx3, cooperative Head: NC/AT Throat: Supple, no masses Respiratory: No increased work of breathing Cardiac: Regular rate and Rhythm GI: non tender, non distended Musculoskeletal: Physician Office Rep strengths are equal bilaterally 5/5, Lower extremity strengths are equal bilaterally at 5/5. Neurological: CN II-XII in tact, patient was AOx3, speech and language are normal, no unilateralizing weakness, no seizure activity note on physical exam. Mild left facial paresthesia. Integementary: no rash, no erythema Psychiatric: mood and affect appropriate - Constitutional Constitutional Comment(s): all systems not noted in the HPI are negative. - Labs CBC & Chem 7: 07/13/16 15:58 07/13/16 15:58 Assessment and Plan (1) White matter changes Status: Acute (2) CVA (cerebral vascular accident) Status: Acute Plan: Patient does appear to have suffered a CVA. With the exception of left facial paresthesias that is mild, the patient's presenting symptoms have resolved. Imaging does reflect that on MRI there was noted chronic small vessel ischemic changes within the white matter the right centrum semiovale. Also noted was extensive white matter changes that appear to be chronic bilaterally in the white matter. Patient will continue Plavix at existing dose and frequency. Continue statin therapy at existing dose and frequency. Physical therapy has been consult on the patient. Status: patient is cleared from a neurological standpoint for discharge. Patient to be advised to contact our office for a follow-up appointment within 10-14 business days. Medications be continued as noted above. I discussed the patient's pertinent medical information with Dr. Garvey. He agrees with the plan of care as implemented.
--- NOTE | 2016-07-17 22:59 | DS ---
DATE OF ADMISSION: 07/13/2016 DATE OF DISCHARGE: 07/16/2016 FINAL DIAGNOSES: 1. Acute stroke acute stroke in a right-handed patient, likely ischemic, possibly in the brainstem. 2. Essential hypertension. 3. Hyperlipidemia. 4. Hypothyroidism. 5. Sinus bradycardia, physiological. HOSPITAL COURSE: This patient presented with weakness on the left side, numbness on the left side of the face. Patient did undergo EEG that was negative. CT angio brain was unremarkable. Two-D echo showed preserved LV function. MRI of the brain showed 2 to 3 acute ischemic ( ) in the deep white matter of the right centrum semiovale. PATTIE came back to be negative. Patient's symptoms are much improved by the time of discharge. LDL was 53. Patient was seen by marianna Mart to be discharged. Care was discussed in detail with patient. On examination, weakness of the left side greatly improved. Some weakness still present in the left arm 4/5. DISCHARGE MEDICATIONS: 1. Lipitor 80 mg q.h.s. 2. Vitamin D3, 1000 units p.o. q.h.s. 3. Synthroid 100 mcg p.o. daily. 4. PreserVision AREDS 2 soft gel 1 capsule q.h.s. 5. Plavix 75 mg a day. 6. Zestoretic 01/09.5, 1 tablet daily. Follow up with Dr. Mendoza in 1 week and this is a patient of Dr. Barbosa. She will follow up with him in 10 days. Discharge planning more than 35 minutes.
== END 2016-07-16 17:06 | disposition home or self-care (01) | DRG 65 ==
LOC: EC 15:26 → 6SEL 16:52
PROVIDERS: ADMIT Hospitalist; ATTEND Hospitalist
PROC: B24BZZ4 Ultrasonography of Heart with Aorta, Transesophageal (ICD-10-PCS; principal; 2016-07-16 07:30)
DX: I63.511 Cerebral infarction due to unspecified occlusion or stenosis of right middle cerebral artery (principal); G81.94 Hemiplegia, unspecified affecting left nondominant side; R00.1 Bradycardia, unspecified; I34.0 Nonrheumatic mitral (valve) insufficiency; I63.9 Cerebral infarction, unspecified; R29.700 NIHSS score 0; E78.5 Hyperlipidemia, unspecified; E89.0 Postprocedural hypothyroidism; I10 Essential (primary) hypertension; I25.2 Old myocardial infarction; I25.10 Atherosclerotic heart disease of native coronary artery without angina pectoris; Z95.5 Presence of coronary angioplasty implant and graft; Z86.73 Personal history of transient ischemic attack (TIA), and cerebral infarction without residual deficits; Z87.891 Personal history of nicotine dependence; Z79.899 Other long term (current) drug therapy; Z79.82 Long term (current) use of aspirin
CPT/HCPCS: 36415; 70450; 70496; 70498; 70551; 71020; 80053; 80061; 82550; 82553; 83090; 84443; 84484; 85025; 85610; 85730; 93005; 93306; 93312; 93320; 93325; 95819; 96360; 99285

== ENCOUNTER 2016-08-04 12:33 | Emergency (ER) | payer MEDICARE, BC ==
[2016-08-04] MEDS ORDERED: NITROGLYCERIN OINT 1 INCH/GM PACKET TOPICAL STA (12:42)
[2016-08-04] MEDS ORDERED: ASPIRIN 81 MG CHEW PO STA (12:42)
--- NOTE | 2016-08-04 12:44 | ED ---
General Adult HPI - General Stated complaint: Hypertension Time Seen by Provider: 08/04/16 12:35 Source: RN notes reviewed - History of Present Illness Initial comments: This is an 81-year-old female presents emergency Department with a recent TIA and hypertension. Patient was going to the pharmacy to get her hypertensive medication which is new and she was having some severe headaches that were intermittent but continue to occur on the left side of her head. Patient then became lightheaded and started having chest pressure lasted 15-20 minutes. Patient did not take her new hypertensive meds. Patient states her systolic blood pressure was in the 190s. Patient states the chest pressure finally went away when she got the ambulance on oxygen. Patient currently denies any symptoms whatsoever. Patient states headache is gone and so is the chest pressure at this time. Patient denied any radiation of the chest pain patient denies any shortness of breath. Patient denies any diaphoresis. Patient denies nausea vomiting or diarrhea. Patient denied any visual disturbance or speech disturbance. Patient denies any numbness weakness. - Related Data Home Medications Medication Instructions Recorded Confirmed Atorvastatin [Lipitor] 80 mg PO HS 07/13/16 08/04/16 Cholecalciferol [Vitamin D3] 1,000 unit PO HS 07/13/16 08/04/16 Levothyroxine Sodium [Synthroid] 100 mcg PO DAILY 07/13/16 08/04/16 Vit C/E/Zn/Coppr/Lutein/Zeaxan 1 cap PO HS 07/13/16 08/04/16 [Preservision Areds 2 Softgel] Aspirin [Adult Low Dose Aspirin EC] 81 mg PO DAILY 08/04/16 08/04/16 Biotin 5 mg PO DAILY 08/04/16 08/04/16 Nitroglycerin Sl Tabs [Nitrostat] 1 tab PO Q5M PRN 08/04/16 08/04/16 Previous Rx's Medication Instructions Recorded Clopidogrel [Plavix] 75 mg PO DAILY #30 tab 07/16/16 Lisinopril-Hctz 10-12.5 mg 1 tab PO DAILY #30 tab 07/16/16 [Zestoretic 10-12.5] Allergies Allergy/AdvReac Type Severity Reaction Status Date / Time No Known Allergies Allergy Verified 08/04/16 13:29 Review of Systems ROS Statement: Those systems with pertinent positive or pertinent negative responses have been documented in the HPI. ROS Other: All systems not noted in ROS Statement are negative. Past Medical History Past Medical History: CVA/TIA, Hyperlipidemia, Thyroid Disorder History of Any Multi-Drug Resistant Organisms: None Reported Past Surgical History: Appendectomy, Tonsillectomy Additional Past Surgical History / Comment(s): thryrodectomy, Past Anesthesia/Blood Transfusion Reactions: No Reported Reaction Past Psychological History: No Psychological Hx Reported Smoking Status: Former smoker Past Alcohol Use History: Occasional Past Drug Use History: None Reported - Past Family History Father Family Medical History: Myocardial Infarction ([place]) Additional Family Medical History / Comment(s): HAD STENT PLACEMENT IN 2005 OR 2006 AFTER [place] IS UNSURE Mother Family Medical History: Memory Impairment, Vascular Disorder General Exam - General Exam Comments Initial Comments: GENERAL: Patient is well-developed and well-nourished. Patient is nontoxic and well- hydrated and is in no acute distress. ENT: Neck is soft and supple. No significant lymphadenopathy is noted. Oropharynx is clear. Moist mucous membranes. Neck has full range of motion without eliciting any pain. EYES: The sclera were anicteric and conjunctiva were pink and moist. Extraocular movements were intact and pupils were equal round and reactive to light. Eyelids were unremarkable. PULMONARY: Unlabored respirations. Good breath sounds bilaterally. No audible rales rhonchi or wheezing was noted. CARDIOVASCULAR: There is a regular rate and rhythm without any murmurs gallops or rubs. ABDOMEN: Soft and nontender with normal bowel sounds. No palpable organomegaly was noted. There is no palpable pulsatile mass. SKIN: Skin is clear with no lesions or rashes and otherwise unremarkable. NEUROLOGIC: Patient is alert and oriented x3. Cranial nerves II through XII are grossly intact. Motor and sensory are also intact. Normal speech, volume and content. Symmetrical smile. MUSCULOSKELETAL: Normal extremities with adequate strength and full range of motion. No lower extremity swelling or edema. No calf tenderness. LYMPHATICS: No significant lymphadenopathy is noted PSYCHIATRIC: Normal psychiatric evaluation. Normal interpersonal interactions appears functionally intact in deals appropriately with others. No signs of depression. No signs of anxiety. Course Vital Signs 08/04/16 08/04/16 12:47 14:10 Temperature 98 F Pulse Rate 65 60 Respiratory 18 18 Rate Blood Pressure 184/80 157/67 O2 Sat by Pulse 99 97 Oximetry Medical Decision Making - Medical Decision Making EKG shows sinus bradycardia 55 bpm [place] interval 148 QRS is 86 QT interval is 454 QTC is 434. Patient's EKG shows no ST segment elevation or depression. Patient's CT of the head shows no acute normalities. Patient's chest x-ray shows no acute abnormalities. Patient's had no symptoms while being in the emergency department. I spoke with Dr. Glynn and he agreed to admit the patient. I admitted the patient I wrote admitting orders. I consult cardiology. - Lab Data Result diagrams: 08/04/16 13:01 08/04/16 13:01 Lab Results 08/04/16 08/04/16 08/04/16 Range/Units 13: 13: 13:01 WBC 5.1 (3.8-10.6) k/uL RBC 4.35 (3.80-5.40) m/uL Hgb 13.1 (11.4-16.0) gm/dL Hct 40.9 (34.0-46.0) % MCV 94.0 (80.0-100.0) fL MCH 30.2 (25.0-35.0) pg MCHC 32.1 (31.0-37.0) g/dL RDW 13.6 (11.5-15.5) % Plt Count 192 (150-450) k/uL Neutrophils % 62 % Lymphocytes % 23 % Monocytes % 6 % Eosinophils % 5 % Basophils % 1 % Neutrophils # 3.2 (1.3-7.7) k/uL Lymphocytes # 1.2 (1.0-4.8) k/uL Monocytes # 0.3 (0-1.0) k/uL Eosinophils # 0.2 (0-0.7) k/uL Basophils # 0.0 (0-0.2) k/uL PT (9.0-12.0) sec INR (<1.1) APTT (22.0-30.0) sec Sodium 140 (137-145) mmol/L Potassium 4.7 (3.5-5.1) mmol/L Chloride 106 (98-107) mmol/L Carbon Dioxide 28 (22-30) mmol/L Anion Gap 6 mmol/L BUN 21 H (7-17) mg/dL Creatinine 0.83 (0.52-1.04) mg/dL Est GFR (MDRD) Af Amer >60 (>60 ml/min/1.73 sqM) Est GFR (MDRD) Non-Af >60 (>60 ml/min/1.73 sqM) Glucose 96 (74-99) mg/dL Calcium 9.0 (8.4-10.2) mg/dL Magnesium 2.1 (1.6-2.3) mg/dL Total Bilirubin 0.6 (0.2-1.3) mg/dL AST 27 (14-36) U/L ALT 32 (9-52) U/L Alkaline Phosphatase 80 (38-126) U/L Total Creatine Kinase 100 (30-135) U/L CK-MB (CK-2) 0.8 (0.0-2.4) ng/mL CK-MB (CK-2) Rel Index 0.8 Troponin I <0.012 (0.000-0.034) ng/mL Total Protein 6.7 (6.3-8.2) g/dL Albumin 3.7 (3.5-5.0) g/dL 08/04/16 Range/Units 13:01 WBC (3.8-10.6) k/uL RBC (3.80-5.40) m/uL Hgb (11.4-16.0) gm/dL Hct (34.0-46.0) % MCV (80.0-100.0) fL MCH (25.0-35.0) pg MCHC (31.0-37.0) g/dL RDW (11.5-15.5) % Plt Count (150-450) k/uL Neutrophils % % Lymphocytes % % Monocytes % % Eosinophils % % Basophils % % Neutrophils # (1.3-7.7) k/uL Lymphocytes # (1.0-4.8) k/uL Monocytes # (0-1.0) k/uL Eosinophils # (0-0.7) k/uL Basophils # (0-0.2) k/uL PT 11.1 (9.0-12.0) sec INR 1.1 (<1.1) APTT 23.0 (22.0-30.0) sec Sodium (137-145) mmol/L Potassium (3.5-5.1) mmol/L Chloride (98-107) mmol/L Carbon Dioxide (22-30) mmol/L Anion Gap mmol/L BUN (7-17) mg/dL Creatinine (0.52-1.04) mg/dL Est GFR (MDRD) Af Amer (>60 ml/min/1.73 sqM) Est GFR (MDRD) Non-Af (>60 ml/min/1.73 sqM) Glucose (74-99) mg/dL Calcium (8.4-10.2) mg/dL Magnesium (1.6-2.3) mg/dL Total Bilirubin (0.2-1.3) mg/dL AST (14-36) U/L ALT (9-52) U/L Alkaline Phosphatase (38-126) U/L Total Creatine Kinase (30-135) U/L CK-MB (CK-2) (0.0-2.4) ng/mL CK-MB (CK-2) Rel Index Troponin I (0.000-0.034) ng/mL Total Protein (6.3-8.2) g/dL Albumin (3.5-5.0) g/dL Disposition Clinical Impression: Chest pain Disposition: ADMITTED IP TO THIS HOSP Referrals: Anish Mendoza DO [Primary Care Provider] - 1-2 days Time of Disposition: 14:56
[2016-08-04 12:49] VITALS: RESP 18
[2016-08-04 13:09] LABS: Basophils % (A) 1 %; CH 30.4; CHCM 32.5; Eosinophils # (A) 0.2 k/uL (0-0.7); Eosinophils % (A) 5 %; HCT 40.9 % (34.0-46.0); HDW 2.13; HGB 13.1 gm/dL (11.4-16.0); Luc # (Auto) 0.17; Luc % (Auto) 3; Lymphocytes # (A) 1.2 k/uL (1.0-4.8); Lymphocytes % (A) 23 %; MCH 30.2 pg (25.0-35.0); MCHC 32.1 g/dL (31.0-37.0); Mean Platelet Volume 7.2; Monocytes # (A) 0.3 k/uL (0-1.0); Monocytes % (A) 6 %; Neutrophils # (A) 3.2 k/uL (1.3-7.7); Neutrophils % (A) 62 %; RBC 4.35 m/uL (3.80-5.40); RDW 13.6 % (11.5-15.5); WBC 5.1 k/uL (3.8-10.6); WBC (Perox) 5.18
[2016-08-04 13:18] LABS: ALT 32 U/L (9-52); AST 27 U/L (14-36); Alkaline Phosphatase 80 U/L (38-126); Anion Gap 6 mmol/L; Blood Urea Nitrogen 21 mg/dL (7-17); Carbon Dioxide 28 mmol/L (22-30); Chloride 106 mmol/L (98-107); Glucose 96 mg/dL (74-99); Magnesium 2.1 mg/dL (1.6-2.3); Non-African American GFR(MDRD) >60 (>60 ml/min/1.73 sqM); Potassium 4.7 mmol/L (3.5-5.1); Sodium 140 mmol/L (137-145); Total Bilirubin 0.6 mg/dL (0.2-1.3); Total Protein 6.7 g/dL (6.3-8.2)
[2016-08-04 13:21] LABS: INR 1.1 (<1.1); Prothrombin Time 11.1 sec (9.0-12.0)
[2016-08-04 13:28] LABS: Creatine Kinase 100 U/L (30-135)
[2016-08-04 13:41] LABS: Creatine Kinase MB 0.8 ng/mL (0.0-2.4); Troponin I <0.012 ng/mL (0.000-0.034)
--- NOTE | 2016-08-04 14:07 | XR ---
EXAMINATION TYPE: XR chest 2V DATE OF EXAM: 08/04/2016 2:00 PM COMPARISON: Prior chest x-ray 13 July 2016 HISTORY: Chest pain TECHNIQUE: Frontal and lateral views of the chest are obtained. FINDINGS: Prominent lung volumes suggest underlying COPD. Bandlike area of increased attenuation is stable in the left lower lung likely representing scar. No pneumonia, pneumothorax, or pleural effusi on. There are overlying cardiac leads. Cardiomediastinal silhouette, pulmonary vascularity and jack a re stable. IMPRESSION: Stable exam, no acute abnormality.
--- NOTE | 2016-08-04 14:09 | CT ---
EXAMINATION TYPE: CT brain wo con DATE OF EXAM: 08/04/2016 1:56 PM COMPARISON: Prior CT brain 13 July 2016 HISTORY: Hypertension CT DLP: 995.50 mGycm Automated exposure control for dose reduction was used. FINDINGS: Cerebral vascular calcifications are present. There is no hemorrhage or hydrocephalus. Brain density is remarkable for periventricular white matter low-attenuation as on previous exam. Calvarium is inta ct. Paranasal sinuses and mastoid air cells as visualized are normal. IMPRESSION: No acute intracranial hemorrhage, mass effect, or midline shift is seen. Stable exam.
[2016-08-04] MEDS ORDERED: NITROGLYCERIN SL TABS 0.4 MG TAB SUBLINGUAL PRN (14:57)
[2016-08-04 15:45] VITALS: BP 123/71; PULSE 71; TEMP 97.7
[2016-08-04] MEDS ORDERED: NITROGLYCERIN OINT 1 INCH/GM PACKET TOPICAL SCH (18:00)
[2016-08-05] MEDS ORDERED: ASPIRIN 325 MG TAB PO SCH (09:00)
== END 2016-08-04 15:46 | disposition other institution (70) ==
LOC: EC 12:33 → 3OBS 14:57 → UNDOADMOB 14:57 → 3OBS 15:19
DX: R07.89 Other chest pain (principal); R00.1 Bradycardia, unspecified; R42 Dizziness and giddiness; E07.9 Disorder of thyroid, unspecified; E78.5 Hyperlipidemia, unspecified; Z87.891 Personal history of nicotine dependence; Z79.82 Long term (current) use of aspirin; Z79.899 Other long term (current) drug therapy; Z86.73 Personal history of transient ischemic attack (TIA), and cerebral infarction without residual deficits; Z82.49 Family history of ischemic heart disease and other diseases of the circulatory system
CPT/HCPCS: 36415; 70450; 71020; 80053; 82550; 82553; 83735; 84484; 85025; 85610; 85730; 93005; 99285

== ENCOUNTER 2016-08-23 12:01 | Emergency (ER) | payer MEDICARE, BC ==
[2016-08-23] MEDS ORDERED: SODIUM CHLORIDE 0.9% 1,000 ML IV STA (12:18)
--- NOTE | 2016-08-23 12:23 | ED ---
General Adult HPI - General Chief complaint: Neuro Symptoms/Deficit Stated complaint: POSS CVA Time Seen by Provider: 08/23/16 12:12 Source: patient, RN notes reviewed Mode of arrival: ambulatory Limitations: no limitations - History of Present Illness Initial comments: Patient is a pleasant 81-year-old female presenting to the emergency department with transient vision loss. Patient states she had sudden loss of the center of her visual field bilaterally approximately 30-40%. Patient states it then went to the left side also bilaterally only around 30%. Patient states after 30 -60 minutes symptoms resolved. Patient did go see her head of ict, Dr. Young. He did call and stated patient had a normal eye exam. Patient's eyes were dilated. He has concern for stroke. Patient denies any confusion or speech problems. No weakness. Patient does feel somewhat lightheaded. - Related Data Home Medications Medication Instructions Recorded Confirmed Atorvastatin [Lipitor] 80 mg PO HS 07/13/16 08/23/16 Cholecalciferol [Vitamin D3] 1,000 unit PO HS 07/13/16 08/23/16 Levothyroxine Sodium [Synthroid] 100 mcg PO DAILY 07/13/16 08/23/16 Vit C/E/Zn/Coppr/Lutein/Zeaxan 1 cap PO HS 07/13/16 08/23/16 [Preservision Areds 2 Softgel] Aspirin [Adult Low Dose Aspirin EC] 81 mg PO HS 08/04/16 08/23/16 Biotin 5 mg PO HS 08/04/16 08/23/16 Nitroglycerin Sl Tabs [Nitrostat] 0.4 mg SUBLINGUAL Q5M PRN 08/04/16 08/23/16 Propylene Glycol/Peg 400/Pf 1 drop BOTH EYES DAILY PRN 08/23/16 08/23/16 [Systane 0.3-0.4% Eye Drops] Previous Rx's Medication Instructions Recorded Clopidogrel [Plavix] 75 mg PO DAILY #30 tab 07/16/16 Lisinopril-Hctz 10-12.5 mg 1 tab PO DAILY #30 tab 07/16/16 [Zestoretic 10-12.5] Allergies Allergy/AdvReac Type Severity Reaction Status Date / Time No Known Allergies Allergy Verified 08/23/16 13:19 Review of Systems ROS Statement: Those systems with pertinent positive or pertinent negative responses have been documented in the HPI. ROS Other: All systems not noted in ROS Statement are negative. Constitutional: Denies: fever Eyes: Reports: vision change. Denies: eye pain, eye discharge ENT: Denies: ear pain Respiratory: Denies: cough Cardiovascular: Denies: chest pain Endocrine: Denies: fatigue Gastrointestinal: Denies: abdominal pain Genitourinary: Denies: urgency Musculoskeletal: Denies: back pain Skin: Denies: rash Neurological: Denies: weakness Past Medical History Past Medical History: CVA/TIA, Hyperlipidemia, Thyroid Disorder History of Any Multi-Drug Resistant Organisms: None Reported Past Surgical History: Appendectomy, Tonsillectomy Additional Past Surgical History / Comment(s): thryrodectomy, Past Anesthesia/Blood Transfusion Reactions: No Reported Reaction Past Psychological History: No Psychological Hx Reported Smoking Status: Former smoker Past Alcohol Use History: Occasional Past Drug Use History: None Reported - Past Family History Father Family Medical History: Myocardial Infarction ([place]) Additional Family Medical History / Comment(s): HAD STENT PLACEMENT IN 2005 OR 2006 AFTER [place] IS UNSURE Mother Family Medical History: Memory Impairment, Vascular Disorder General Exam Limitations: no limitations General appearance: alert, in no apparent distress, other (No tenderness over the temporal artery) Head exam: Present: atraumatic Eye exam: Present: normal appearance, EOMI, other (Pupils are dilated and unreactive, patient had eyes dilated prior to arrival.) Expanded Eyelids: Normal Inspection: Bilateral Posterior chamber: Normal Inspection: Bilateral ENT exam: Present: normal oropharynx Neck exam: Present: normal inspection Respiratory exam: Present: normal lung sounds bilaterally Cardiovascular Exam: Present: regular rate, normal rhythm Expanded Peripheral pulses: 2+: Radial (R), Radial (L), Dorsalis Pedis (R), Dorsalis Pedis (L) GI/Abdominal exam: Present: soft. Absent: tenderness Extremities exam: Present: normal inspection Neurological exam: Present: alert, oriented X3, CN II-XII intact. Absent: motor sensory deficit Expanded Patient oriented to: Present: person, place, time Speech: Present: fluid speech Cranial nerves: EOM's Intact: Normal, Facial Sensation: Normal Sensory exam: Upper Extremity Light Touch: Normal, Lower Extremity Light Touch: Normal Motor strength exam: RUE: 5, LUE: 5, RLE: 5, LLE: 5 Eye Response: (4) open spontaneously Motor Response: (6) obeys commands Verbal Response: (5) oriented Psychiatric exam: Present: normal affect, normal mood Skin exam: Present: normal color Course Vital Signs 08/23/16 12:07 Temperature 97.1 F L Pulse Rate 57 L Respiratory 18 Rate Blood Pressure 118/69 O2 Sat by Pulse 98 Oximetry EKG Findings - EKG Comments: EKG Findings:: Sinus bradycardia 58. W[place] 146. QRS 82. QT 442. QTC 433. Normal axis. Normal QRS. Normal ST-T. Medical Decision Making - Medical Decision Making Patient reexamined and resting comfortably in bed. Patient advised admission. Patient is advised of further testing needed as well as neurology evaluation. Despite this patient diffuse admission. Patient does not feel she needs to be here and states she is symptom-free at this time. Patient will leave AGAINST MEDICAL ADVICE. - Lab Data Result diagrams: 08/23/16 12:26 08/23/16 12:26 Lab Results 08/23/16 08/23/16 08/23/16 Range/Units 12:26 12:26 12:26 WBC 7.9 (3.8-10.6) k/uL RBC 4.27 (3.80-5.40) m/uL Hgb 13.2 (11.4-16.0) gm/dL Hct 39.0 (34.0-46.0) % MCV 91.5 (80.0-100.0) fL MCH 30.9 (25.0-35.0) pg MCHC 33.8 (31.0-37.0) g/dL RDW 13.0 (11.5-15.5) % Plt Count 183 (150-450) k/uL Neutrophils % 69 % Lymphocytes % 19 % Monocytes % 6 % Eosinophils % 3 % Basophils % 1 % Neutrophils # 5.5 (1.3-7.7) k/uL Lymphocytes # 1.5 (1.0-4.8) k/uL Monocytes # 0.5 (0-1.0) k/uL Eosinophils # 0.2 (0-0.7) k/uL Basophils # 0.0 (0-0.2) k/uL ESR 34 H (0-20) mm/hr PT (9.0-12.0) sec INR (<1.1) APTT (22.0-30.0) sec Sodium 138 (137-145) mmol/L Potassium 4.6 (3.5-5.1) mmol/L Chloride 103 (98-107) mmol/L Carbon Dioxide 26 (22-30) mmol/L Anion Gap 9 mmol/L BUN 29 H (7-17) mg/dL Creatinine 1.17 H (0.52-1.04) mg/dL Est GFR (MDRD) Af Amer 54 (>60 ml/min/1.73 sqM) Est GFR (MDRD) Non-Af 45 (>60 ml/min/1.73 sqM) Glucose 92 (74-99) mg/dL Calcium 9.4 (8.4-10.2) mg/dL Total Bilirubin 0.6 (0.2-1.3) mg/dL AST 25 (14-36) U/L ALT 22 (9-52) U/L Alkaline Phosphatase 89 (38-126) U/L Total Creatine Kinase 66 (30-135) U/L CK-MB (CK-2) 0.6 (0.0-2.4) ng/mL CK-MB (CK-2) Rel Index 0.9 Troponin I <0.012 (0.000-0.034) ng/mL Total Protein 6.7 (6.3-8.2) g/dL Albumin 3.8 (3.5-5.0) g/dL 08/23/16 Range/Units 12:26 WBC (3.8-10.6) k/uL RBC (3.80-5.40) m/uL Hgb (11.4-16.0) gm/dL Hct (34.0-46.0) % MCV (80.0-100.0) fL MCH (25.0-35.0) pg MCHC (31.0-37.0) g/dL RDW (11.5-15.5) % Plt Count (150-450) k/uL Neutrophils % % Lymphocytes % % Monocytes % % Eosinophils % % Basophils % % Neutrophils # (1.3-7.7) k/uL Lymphocytes # (1.0-4.8) k/uL Monocytes # (0-1.0) k/uL Eosinophils # (0-0.7) k/uL Basophils # (0-0.2) k/uL ESR (0-20) mm/hr PT 10.7 (9.0-12.0) sec INR 1.1 (<1.1) APTT 23.7 (22.0-30.0) sec Sodium (137-145) mmol/L Potassium (3.5-5.1) mmol/L Chloride (98-107) mmol/L Carbon Dioxide (22-30) mmol/L Anion Gap mmol/L BUN (7-17) mg/dL Creatinine (0.52-1.04) mg/dL Est GFR (MDRD) Af Amer (>60 ml/min/1.73 sqM) Est GFR (MDRD) Non-Af (>60 ml/min/1.73 sqM) Glucose (74-99) mg/dL Calcium (8.4-10.2) mg/dL Total Bilirubin (0.2-1.3) mg/dL AST (14-36) U/L ALT (9-52) U/L Alkaline Phosphatase (38-126) U/L Total Creatine Kinase (30-135) U/L CK-MB (CK-2) (0.0-2.4) ng/mL CK-MB (CK-2) Rel Index Troponin I (0.000-0.034) ng/mL Total Protein (6.3-8.2) g/dL Albumin (3.5-5.0) g/dL - Radiology Data Radiology results: report reviewed (Computed tomography scan of the brain shows no acute abnormality. No interval change from previous.), image reviewed ( Chest x-ray shows possible left lower lobe infiltrate. As read by radiologist.) Disposition Clinical Impression: Transient cerebral ischemia Disposition: Left Against Medical Advice Instructions: Transient Ischemic Attack (ED) Additional Instructions: Please follow-up with your primary care physician and neurologist in the next day or 2 for recheck and further testing. Continue your Plavix. Please also follow-up with primary care physician regarding chest x-ray results. Return for cough or difficulty in breathing, fevers, weakness, visual loss, confusion, speech problem, worsening symptoms or other concerns. Referrals: Anish Mendoza DO [Primary Care Provider] - 1-2 days Time of Disposition: 14:17
--- NOTE | 2016-08-23 12:50 | CT ---
EXAMINATION TYPE: CT brain wo con DATE OF EXAM: 08/23/2016 12:41 PM COMPARISON: Prior head CT x-ray 04 Aug 2016 HISTORY: Visual disturbance CT DLP: 989 mGycm Automated exposure control for dose reduction was used. FINDINGS: There is no acute intracranial hemorrhage, mass effect, or midline shift identified. The ventricles and sulci are within normal limits in size. Cerebral vascular calcifications are again noted. Perive ntricular white matter low-attenuation is not significantly changed, there is cortical atrophy which is likely age-related. The globes are intact and the visualized sinuses are clear. IMPRESSION: No acute intracranial hemorrhage, mass effect, or midline shift is seen. No significant interval [employer] [employer].
[2016-08-23 12:53] LABS: Basophils % (A) 1 %; CH 30.7; CHCM 33.7; Eosinophils # (A) 0.2 k/uL (0-0.7); Eosinophils % (A) 3 %; HDW 2.22; HGB 13.2 gm/dL (11.4-16.0); Luc # (Auto) 0.19; Luc % (Auto) 2; Lymphocytes # (A) 1.5 k/uL (1.0-4.8); Lymphocytes % (A) 19 %; MCH 30.9 pg (25.0-35.0); MCHC 33.8 g/dL (31.0-37.0); MCV 91.5 fL (80.0-100.0); Mean Platelet Volume 7.1; Monocytes # (A) 0.5 k/uL (0-1.0); Monocytes % (A) 6 %; Neutrophils # (A) 5.5 k/uL (1.3-7.7); Neutrophils % (A) 69 %; RBC 4.27 m/uL (3.80-5.40); WBC 7.9 k/uL (3.8-10.6); WBC (Perox) 7.93
--- NOTE | 2016-08-23 13:03 | XR ---
EXAMINATION TYPE: XR chest 2V DATE OF EXAM: 08/23/2016 12:49 PM COMPARISON: 08/04/2016 TECHNIQUE: PA and lateral views submitted. HISTORY: Strokelike symptoms FINDINGS: Subsegmental changes at the left lung base. Atherosclerotic change aorta. Mild diffuse osteopenia and hypertrophic and degenerative change of the spine. Hyperinflation suggests COPD. IMPRESSION: 1. Left lower lobe infiltrate.
[2016-08-23 13:10] LABS: INR 1.1 (<1.1); Partial Thromboplastin Time 23.7 sec (22.0-30.0); Prothrombin Time 10.7 sec (9.0-12.0)
[2016-08-23 13:15] LABS: Calcium 9.4 mg/dL (8.4-10.2); Creatine Kinase 66 U/L (30-135); Potassium 4.6 mmol/L (3.5-5.1); Total Bilirubin 0.6 mg/dL (0.2-1.3); Total Protein 6.7 g/dL (6.3-8.2)
[2016-08-23 13:29] LABS: Creatine Kinase MB 0.6 ng/mL (0.0-2.4); Troponin I <0.012 ng/mL (0.000-0.034)
[2016-08-23 13:44] LABS: Erythrocyte Sedimentation Rate 34 mm/hr (0-20)
--- NOTE | 2016-08-23 14:19 | ED ---
Medical Decision Making - Lab Data Result diagrams: 08/23/16 12:26 08/23/16 12:26 Lab Results 08/23/16 08/23/16 08/23/16 Range/Units 12:26 12: 12:26 WBC 7.9 (3.8-10.6) k/uL RBC 4.27 (3.80-5.40) m/uL Hgb 13.2 (11.4-16.0) gm/dL Hct 39.0 (34.0-46.0) % MCV 91.5 (80.0-100.0) fL MCH 30.9 (25.0-35.0) pg MCHC 33.8 (31.0-37.0) g/dL RDW 13.0 (11.5-15.5) % Plt Count 183 (150-450) k/uL Neutrophils % 69 % Lymphocytes % 19 % Monocytes % 6 % Eosinophils % 3 % Basophils % 1 % Neutrophils # 5.5 (1.3-7.7) k/uL Lymphocytes # 1.5 (1.0-4.8) k/uL Monocytes # 0.5 (0-1.0) k/uL Eosinophils # 0.2 (0-0.7) k/uL Basophils # 0.0 (0-0.2) k/uL ESR 34 H (0-20) mm/hr PT (9.0-12.0) sec INR (<1.1) APTT (22.0-30.0) sec Sodium 138 (137-145) mmol/L Potassium 4.6 (3.5-5.1) mmol/L Chloride 103 (98-107) mmol/L Carbon Dioxide 26 (22-30) mmol/L Anion Gap 9 mmol/L BUN 29 H (7-17) mg/dL Creatinine 1.17 H (0.52-1.04) mg/dL Est GFR (MDRD) Af Amer 54 (>60 ml/min/1.73 sqM) Est GFR (MDRD) Non-Af 45 (>60 ml/min/1.73 sqM) Glucose 92 (74-99) mg/dL Calcium 9.4 (8.4-10.2) mg/dL Total Bilirubin 0.6 (0.2-1.3) mg/dL AST 25 (14-36) U/L ALT 22 (9-52) U/L Alkaline Phosphatase 89 (38-126) U/L Total Creatine Kinase 66 (30-135) U/L CK-MB (CK-2) 0.6 (0.0-2.4) ng/mL CK-MB (CK-2) Rel Index 0.9 Troponin I <0.012 (0.000-0.034) ng/mL Total Protein 6.7 (6.3-8.2) g/dL Albumin 3.8 (3.5-5.0) g/dL 08/23/16 Range/Units 12:26 WBC (3.8-10.6) k/uL RBC (3.80-5.40) m/uL Hgb (11.4-16.0) gm/dL Hct (34.0-46.0) % MCV (80.0-100.0) fL MCH (25.0-35.0) pg MCHC (31.0-37.0) g/dL RDW (11.5-15.5) % Plt Count (150-450) k/uL Neutrophils % % Lymphocytes % % Monocytes % % Eosinophils % % Basophils % % Neutrophils # (1.3-7.7) k/uL Lymphocytes # (1.0-4.8) k/uL Monocytes # (0-1.0) k/uL Eosinophils # (0-0.7) k/uL Basophils # (0-0.2) k/uL ESR (0-20) mm/hr PT 10.7 (9.0-12.0) sec INR 1.1 (<1.1) APTT 23.7 (22.0-30.0) sec Sodium (137-145) mmol/L Potassium (3.5-5.1) mmol/L Chloride (98-107) mmol/L Carbon Dioxide (22-30) mmol/L Anion Gap mmol/L BUN (7-17) mg/dL Creatinine (0.52-1.04) mg/dL Est GFR (MDRD) Af Amer (>60 ml/min/1.73 sqM) Est GFR (MDRD) Non-Af (>60 ml/min/1.73 sqM) Glucose (74-99) mg/dL Calcium (8.4-10.2) mg/dL Total Bilirubin (0.2-1.3) mg/dL AST (14-36) U/L ALT (9-52) U/L Alkaline Phosphatase (38-126) U/L Total Creatine Kinase (30-135) U/L CK-MB (CK-2) (0.0-2.4) ng/mL CK-MB (CK-2) Rel Index Troponin I (0.000-0.034) ng/mL Total Protein (6.3-8.2) g/dL Albumin (3.5-5.0) g/dL Disposition Clinical Impression: Transient cerebral ischemia Disposition: Left Against Medical Advice Instructions: Transient Ischemic Attack (ED) Additional Instructions: Please follow-up with your primary care physician and neurologist in the next day or 2 for recheck and further testing. Continue your Plavix. Please also follow-up with primary care physician regarding chest x-ray results. Return for cough or difficulty in breathing, fevers, weakness, visual loss, confusion, speech problem, worsening symptoms or other concerns. Referrals: nAish Mendoza DO [Primary Care Provider] - 1-2 days Mitali Preciado MD [STAFF PHYSICIAN] - 1-2 days
[2016-08-23 14:21] VITALS: BP 130/60; PULSE 58; RESP 20; TEMP 98
== END 2016-08-23 14:25 | disposition left against medical advice (07) ==
LOC: EC 12:01
DX: G45.9 Transient cerebral ischemic attack, unspecified (principal); E78.5 Hyperlipidemia, unspecified; E07.9 Disorder of thyroid, unspecified; Z87.891 Personal history of nicotine dependence; Z79.82 Long term (current) use of aspirin; Z79.899 Other long term (current) drug therapy
CPT/HCPCS: 36415; 70450; 71020; 80053; 82550; 82553; 84484; 85025; 85610; 85652; 85730; 93005; 96360; 96361; 99284

== ENCOUNTER 2018-11-17 06:21 | Day surgery (SDC) | payer MEDICARE, BC ==
[~2018-11-17 06:21] MED LIST: ALPRAZolam 0.25 MG TAB PO PRN; ALPRAZolam 0.5 MG TAB PO PRN; NITROGLYCERIN SL TABS 0.4 MG TAB SUBLINGUAL PRN; SODIUM CHLORIDE 0.9% 1,000 ML in EMPTY BAG 1 BAG IV ONE
[2018-11-17] MEDS ORDERED: ATORVASTATIN 80 MG TAB PO ONE (07:00)
[2018-11-17] MEDS ORDERED: ASPIRIN 325 MG TAB PO ONE (07:00)
[2018-11-17 07:10] VITALS: RESP 18; TEMP 97.9
[2018-11-17] MEDS ORDERED: LIDOCAINE 1% INJ 10MG/ML (20 ML MDV) ONE (07:33)
[2018-11-17] MEDS ORDERED: fentaNYL (PF) 50 MCG/ML 2 ML AMP ONE (07:48)
[2018-11-17] MEDS ORDERED: MIDAZOLAM (PF) 2 MG/2 ML VIAL IV ONE (07:51)
[2018-11-17] MEDS ORDERED: fentaNYL (PF) 50 MCG/ML 2 ML AMP IV ONE (07:51)
[2018-11-17] MEDS ORDERED: LIDOCAINE 1% INJ 10MG/ML (20 ML MDV) SQ ONE (07:54)
[2018-11-17] MEDS ORDERED: IOPAMIDOL-370 100ML BTL INJ ONE ×2 (08:08→08:20)
[2018-11-17] MEDS ORDERED: RX INFO: IV CONTRAST WAS GIVEN 1 EACH MISC MISCELLANE PRN (08:31)
--- NOTE | 2018-11-17 08:37 | P.CARDCATH ---
Date of Procedure: 11/17/18 Preoperative Diagnosis: Chest pain and positive stress test Postoperative Diagnosis: Patent stent without any other critical disease Procedure(s) Performed: Left heart catheterization without left ventriculography Description of Procedure: HISTORY: This is a 83-year-old female with history of ischemic heart disease and previous stent placement of the circumflex has been experiencing chest pains. Had a stress test which is suggestive of possible ischemia in the anterolateral wall with fixed defect in the lateral wall. In view of known ischemic heart disease and ongoing chest pains and positive stress test, patient is advised to have cardiac catheterization CONSENT:I have discussed the risks, benefits and alternative therapies for the above-mentioned procedure and for both sedation/analgesia as well as necessary blood product administration, if indicated, as they pertain to this patient. The patient has indicated understanding and acceptance of the risks and procedures discussed. PROCEDURE: Patient was brought to the lab in a fasting state. Patient was given some IV sedation. The right groin is infiltrated with lidocaine and right femoral artery was entered using Seldinger technique. A 6-Irish catheter was left in place and selective coronary arteriography and left ventriculography was performed. Patient tolerated the procedure well. Femoral angiogram was performed and Angio-Seal was applied for hemostasis. No immediate complications were noted and patient was transferred to [facility] in a stable condition Conscious Sedation: Versed 0.5mg Fentanyl 25 g Duration 32minutes HEMODYNAMICS: The aortic pressure was 160/70. The left ventricle end-diastolic pressure is about 12. There was no gradient across the aortic valve SELECTIVE CORONARY ARTERIOGRAPHY: LEFT MAIN: This is a normal length and free of any significant occlusive disease THE LEFT ANTERIOR DESCENDING CORONARY ARTERY:. This is a good caliber vessel giving rise to good-sized diagonal branch. The LAD has mild disease without any critical lesions THE LEFT CIRCUMFLEX AND IS CORONARY ARTERY: This is a moderate caliber vessel with patent stent in the midportion. 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 Has mild diffuse plaque in the proximal portion without any critical lesions. The rest of the RCA appears to be free of any significant occlusive disease LEFT VENTRICULOGRAPHY:. Not performed FINAL IMPRESSION:. Stable coronary artery disease with patent stent in the circumflex and mild diffuse disease in the rest of the carotid system, which is heavily calcified PLAN: Maximum medical therapy and risk factor modification PROGNOSIS:. Fair
[2018-11-17] MEDS ORDERED: SODIUM CHLORIDE 0.9% 1,000 ML IV SCH (08:45)
[2018-11-17 13:40] VITALS: BP 156/69; PULSE 52
== END 2018-11-17 10:45 | disposition home or self-care (01) ==
LOC: CATHCVL 06:21
PROVIDERS: ATTEND Internal Medicine Cardiovascular Disease
DX: I25.10 Atherosclerotic heart disease of native coronary artery without angina pectoris (principal); E78.5 Hyperlipidemia, unspecified; I10 Essential (primary) hypertension; E78.00 Pure hypercholesterolemia, unspecified; F17.210 Nicotine dependence, cigarettes, uncomplicated; I25.2 Old myocardial infarction; Z95.5 Presence of coronary angioplasty implant and graft; Z82.49 Family history of ischemic heart disease and other diseases of the circulatory system; Z79.02 Long term (current) use of antithrombotics/antiplatelets; Z79.82 Long term (current) use of aspirin; Z79.890 Hormone replacement therapy; Z79.899 Other long term (current) drug therapy
CPT/HCPCS: 93458; C1760; C1769 ×3; C1894; J2001; J3010; Q9967; J2250

== ENCOUNTER → 2020-07-25 | Outpatient (CLI) | payer MEDICARE, BC ==
--- NOTE | 2020-07-26 07:15 | CT ---
EXAMINATION TYPE: CT chest w con DATE OF EXAM: 07/25/2020 COMPARISON: Chest x-ray August 23, 2016 is most recent x-ray at this institution HISTORY: abnormal cxr, hx of covid CT DLP: 374.1 mGycm. Automated Exposure Control for Dose Reduction was Utilized. TECHNIQUE: CT scan of the thorax is performed following with IV Contrast, patient injected with 80cc mL of Isovue 300. FINDINGS: LUNGS: There is a small fat-containing hernia left hemidiaphragm posteriorly sagittal image 78. There is [id number] bibasilar scarring and/or atelectasis. No suspicious focal consolidation or grou ndglass opacity. No concerning pulmonary nodules or masses. No pleural effusion or pneumothorax seen. MEDIASTINUM: There are prominent but subcentimeter pericarinal and subcarinal lymph nodes. Tiny peric ardial effusion is seen. Cardiomegaly is present. Moderate to severe three-vessel coronary artery ca lcification and/or stents. Mild to moderate biatrial dilatation. Mild to moderate left ventricular di latation. OTHER: Moderate to severe calcified plaque in the aorta extends into branch vessels. Exaggerated thor acic kyphosis with mild to moderate multilevel anterior and lateral spurring. IMPRESSION: Small left-sided diaphragmatic hernia. Cardiomegaly with mild/moderate bibasilar linear s carring and/or atelectasis. No suspicious acute pulmonary process.
== END | disposition home or self-care (01) ==
LOC: RADCTMAIN 16:53
PROVIDERS: ATTEND Internal Medicine Critical Care Medicine
DX: R91.8 Other nonspecific abnormal finding of lung field (principal); Z86.16 Personal history of COVID-19; K44.9 Diaphragmatic hernia without obstruction or gangrene
CPT/HCPCS: 82565; 84520; 71260; 36415; Q9967

== ENCOUNTER → 2021-07-27 | Outpatient (CLI) | payer MEDICARE, BC ==
--- NOTE | 2021-07-27 07:48 | CT ---
EXAMINATION TYPE: CT brain wo con DATE OF EXAM: 07/27/2021 HISTORY: TIA, episode of garbled speech CT DLP: 1036 mGycm. Automated Exposure Control for Dose Reduction was Utilized. TECHNIQUE: CT scan of the head is performed without contrast. COMPARISON: CT brain August 23, 2016 and older studies. FINDINGS: There is no acute intracranial hemorrhage or midline shift identified. There is mild diff use ventricular and sulcal prominence consistent with diffuse age-related cerebral atrophy. There is moderate to advanced low-attenuation in the deep and periventricular white matter consistent with ch ronic small vessel ischemic change. The globes are intact bilaterally. Mild mucosal thickening inv olving the right maxillary sinus and ethmoid sinuses bilaterally. IMPRESSION: No acute intracranial hemorrhage or midline shift. There is mild diffuse age-related ce rebral atrophy and moderate to advanced chronic small vessel ischemic change redemonstrated. No sign ificant change from prior.
== END | disposition home or self-care (01) ==
LOC: RADCTMAIN 07:13
PROVIDERS: ATTEND Family Medicine
DX: G31.9 Degenerative disease of nervous system, unspecified (principal); I67.82 Cerebral ischemia
CPT/HCPCS: 70450

== ENCOUNTER → 2021-09-10 | Outpatient (CLI) | payer MEDICARE, BC ==
--- NOTE | 2021-09-11 04:03 | MR ---
EXAMINATION TYPE: MR angio head wo con DATE OF EXAM: 09/10/2021 COMPARISON: None HISTORY: BRAIN STEM STROKE SYNDROME MR angiographic images were obtained of the intracerebral arterial circulation. There is arterial flow in both distal internal carotid arteries. There is arterial flow in both dista l vertebral arteries and the vertebrobasilar artery system. No flow seen in the A1 segment of the rig ht anterior cerebral artery. Both anterior cerebral arteries appear to fill from the left side and th rough the anterior communicating artery. This possible fusiform 50% stenosis of the proximal left posterior cerebral artery. There is diminutive posterior communicating artery on the right side. No evidence of patency of a lef t posterior communicating artery. I see no evidence of hemodynamic stenosis. No evidence of aneurysm or neovascularity. No mass effect . IMPRESSION: No flow seen in the A1 segment of the right anterior cerebral artery that is probably developmental. No evidence of hemodynamic stenosis. No aneurysm. Fusiform 50% stenosis of the left posterior cerebral artery.
--- NOTE | 2021-09-11 04:12 | MR ---
EXAMINATION TYPE: MR brain wo con DATE OF EXAM: 09/10/2021 COMPARISON: 07/15/2016 HISTORY: BRAIN STEM STROKE SYNDROME Multiplanar multiecho imaging of the brain with no contrast. Diffusion images show no evidence of an acute infarct. There is cerebral cortical atrophy. There is n o mass effect or midline shift. No sign of intracranial hemorrhage. There is some coalescent increase d signal in the periventricular white matter measuring up to 12 mm in thickness. The brainstem is int act. No evidence of a brainstem infarct. There are discrete foci of increased signal in the white mat ter at the guerrero-white matter junction both cerebral hemispheres that measure up to 7 mm. There is min imal mucosal thickening right maxillary sinus. There is no evidence of orbital mass. IMPRESSION: Extensive periventricular white matter signal changes consistent with age related white matter diseas e and microvascular ischemia. No evidence of cortical infarct. No evidence of a brainstem infarct. White matter changes progressed slightly in the right parietal lobe compared to old exam.
== END | disposition home or self-care (01) ==
LOC: RADMRIMAIN 09:33
PROVIDERS: ATTEND Psychiatry & Neurology Neurology
DX: I66.21 Occlusion and stenosis of right posterior cerebral artery (principal)
CPT/HCPCS: 70544; 70551

== ENCOUNTER → 2021-09-11 | Outpatient (CLI) | payer MEDICARE, BC ==
--- NOTE | 2021-09-12 03:37 | MR ---
EXAMINATION TYPE: MR angio neck wo/w con DATE OF EXAM: 09/11/2021 COMPARISON: CT angiogram 07/14/2016 HISTORY: STENOSIS OF UNSPECIFIED CAROTID ARTERY, CVA, aphasia, garbled speech, forgetful CONTRAST: Standard multiplanar, multisequence MRI departmental protocol images were obtained without contrast a nd with 9 mL intravenous Gadavist gadolinium contrast. There is some long segment of plaque with 50% luminal narrowing of the proximal right internal caroti d artery there is arterial flow in both common carotid arteries. There is normal branching pattern of the great vessels of the aortic arch. There is bilateral arterial flow in the vertebral arteries. Th ere is plaque formation and short segment stenosis of the proximal left internal carotid artery 50% d iameter narrowing. No evidence of carotid or vertebral artery dissection. There is arterial flow in t he vertebral basilar artery system. There is approximate 75% stenosis at the origin of the right exte rnal carotid artery. IMPRESSION: There is plaque formation in approximate 50% stenosis at the origins of both internal carotid arterie s without a significant change compared to old exam. No significant abnormality of the vertebral charito ramsey.
== END | disposition home or self-care (01) ==
LOC: RADMRIMAIN 10:10
PROVIDERS: ATTEND Psychiatry & Neurology Neurology
DX: I65.23 Occlusion and stenosis of bilateral carotid arteries (principal)
CPT/HCPCS: 70549; A9585

== ENCOUNTER → 2022-04-04 | Outpatient (CLI) | payer MEDICARE, BC ==
[2022-04-04 23:33] LABS: African American GFR (CKD) 67.6 (60.0-200.0); Albumin 3.9 g/dL (3.8-4.9); Anion Gap 9.9 mmol/L (10.00-18.00); BUN/Creat Ratio 14.89 Ratio (12.00-20.00); Blood Urea Nitrogen 13.4 mg/dL (9.0-27.0); Calcium 9.5 mg/dL (8.7-10.3); Carbon Dioxide 25.1 mmol/L (20.0-27.5); Non-African American GFR(CKD) 58.3 (60.0-200.0); Phosphorus 3.4 mg/dL (2.4-5.1); Potassium 4.6 mmol/L (3.5-5.5)
[2022-04-05 00:42] LABS: HGB 12.7 g/dL (12.0-15.0); MCH 30.5 pg (27.0-32.0); MCV 98.6 fL (80.0-97.0); Mean Platelet Volume 11.2 fL (9.5-12.2); NRBC Per 100 WBC 0 /100 WBCS (0.0-0.0); Platelet Count 210 X 10*3/uL (140-440); RBC 4.16 X 10*6/uL (4.10-5.20); RDW 14.4 % (11.5-14.5); WBC 6.42 X 10*3/uL (4.50-10.00)
== END | disposition home or self-care (01) ==
LOC: LABWHC1 14:31
PROVIDERS: ATTEND Internal Medicine
DX: R07.9 Chest pain, unspecified (principal); R53.83 Other fatigue; R06.02 Shortness of breath
CPT/HCPCS: 36415; 80069; 83036; 85027

== ENCOUNTER 2022-10-04 15:39 | Emergency (ER) | payer MEDICARE, BC ==
--- NOTE | 2022-10-04 16:18 | ED ---
Dizziness HPI - General Source: patient, family Mode of arrival: wheelchair Limitations: no limitations <Farhad Osullivan - Last Filed: 10/04/22 16:18> <Aniya Cabrera - Last Filed: 10/04/22 21:24> - General Chief Complaint: Dizziness Stated Complaint: dizziness - History of Present Illness Initial Comments: 87 year old Female presenting to the ED with a chief complaint of dizziness. Patient states for the past week has had dizziness described as the room spinning and fatigue. (Farhad Osulilvan) Pleasant 87-year-old female with history of early dementia with complaint of dizziness which she describes as intermittent feeling like the room spinning around her but sometimes just feeling weak and sometimes feeling like she is shaking on the inside. No headache no vision change. No recent illness. No ear pain or tinnitus. (Aniya Cabrera) - Related Data Home Medications Medication Instructions Recorded Confirmed Atorvastatin [Lipitor] 80 mg PO HS 07/13/16 11/17/18 Cholecalciferol [Vitamin D3 (25 1,000 unit PO HS 07/13/16 11/17/18 Mcg = 1000 Iu)] Levothyroxine Sodium [Synthroid] 100 mcg PO DAILY 07/13/16 11/17/18 Vit C/E/Zn/Coppr/Lutein/Zeaxan 1 cap PO HS 07/13/16 11/17/18 [Preservision Areds 2 Softgel] Aspirin [Adult Low Dose Aspirin EC] 81 mg PO DAILY 08/04/16 11/17/18 Biotin 5 mg PO HS 08/04/16 11/17/18 Nitroglycerin Sl Tabs [Nitrostat] 0.4 mg SUBLINGUAL Q5M PRN 08/04/16 11/17/18 Propylene Glycol/Peg 400/Pf 1 drop BOTH EYES DAILY PRN 08/23/16 11/17/18 [Systane 0.3-0.4% Eye Drops] Previous Rx's Medication Instructions Recorded Clopidogrel [Plavix] 75 mg PO DAILY #30 tab 07/16/16 Allergies Allergy/AdvReac Type Severity Reaction Status Date / Time No Known Allergies Allergy Verified 11/17/18 06:52 Review of Systems ROS Other: All systems not noted in ROS Statement are negative. <Farhad Osullivan - Last Filed: 10/04/22 16:18> ROS Other: All systems not noted in ROS Statement are negative. <Aniya Cabrera - Last Filed: 10/04/22 21:24> ROS Statement: Those systems with pertinent positive or pertinent negative responses have been documented in the HPI. Past Medical History Past Medical History: CVA/TIA, Hyperlipidemia, Myocardial Infarction (SC), Thyroid Disorder History of Any Multi-Drug Resistant Organisms: None Reported Past Surgical History: Appendectomy, Heart Catheterization With Stent, Tonsillectomy Additional Past Surgical History / Comment(s): thryrodectomy, Past Anesthesia/Blood Transfusion Reactions: No Reported Reaction Past Psychological History: No Psychological Hx Reported Past Alcohol Use History: Occasional Past Drug Use History: None Reported - Past Family History Father Family Medical History: Myocardial Infarction (SC) Additional Family Medical History / Comment(s): HAD STENT PLACEMENT IN 2005 OR 2006 AFTER SC IS UNSURE Mother Family Medical History: Memory Impairment, Vascular Disorder <Farhad Osullivan - Last Filed: 10/04/22 16:18> General Exam Limitations: no limitations General appearance: alert, in no apparent distress Eye exam: Present: normal appearance, PERRL, EOMI Respiratory exam: Present: normal lung sounds bilaterally Cardiovascular Exam: Present: regular rate, normal rhythm <Farhad Osullivan - Last Filed: 10/04/22 16:18> <Aniya Cabrera - Last Filed: 10/04/22 21:24> - General Exam Comments Initial Comments: Physical Exam GENERAL: Patient is well-developed and well-nourished. Patient is nontoxic and well-hydrated and is in no distress. HENT: Normocephalic, Atraumatic. EYES: PERRL, EOMI PULMONARY: Unlabored respirations. No audible rales rhonchi or wheezing was noted. CARDIOVASCULAR: There is a regular rate and rhythm without any murmurs gallops or rubs. ABDOMEN: Soft and nontender with normal bowel sounds. SKIN: Skin is clear with no lesions or rashes and otherwise unremarkable. : Deferred NEUROLOGIC: Patient is alert and oriented x3. Moving all extremities spontaneously MUSCULOSKELETAL: Normal extremities with adequate strength and full range of motion. No lower extremity swelling or edema. No calf tenderness. PSYCHIATRIC: Normal psychiatric evaluation. (Aniya Cabrera) Course Vital Signs 10/04/22 10/04/22 10/04/22 15:43 17:13 20:29 Temperature 97.9 F 98.1 F Pulse Rate 59 L 50 L 60 Respiratory 16 18 18 Rate Blood Pressure 151/73 183/77 142/65 O2 Sat by Pulse 99 97 Oximetry EKG Findings - EKG Comments: EKG Findings:: EKG was obtained due to complaint of dizziness, EKG was obtained 11/12/1951, EKG interpreted by me with a rate of 54 rhythm is a narrow complex regular bradycardia and does appear to be P waves present before each QRS consistent with a sinus bradycardia. No acute ST elevations or depressions no evidence of ischemia or infarction or arrhythmia. <Aniya Cabrera - Last Filed: 10/04/22 21:24> Medical Decision Making - Lab Data Result diagrams: 10/04/22 16:05 10/04/22 16:05 <Aniya Cabrera - Last Filed: 10/04/22 21:24> - Medical Decision Making Patient was seen and evaluated, history is obtained from patient and son at bedside. Patient concerned that her symptoms are due to overmedication on Keppra. Patient takes 500 mg 3 times daily. 6 Did offer the patient and have her however she declined that she is not currently having any dizziness and is only taking more medications. A CBC and CMP were unremarkable patient received some IV fluids and was eating upon reevaluation she reported feeling better no dizziness. I did offer the patient admission however given that she is not having any symptoms she would prefer to be discharged home at this time. Was pt. sent in by a medical professional or institution (, PA, CORK INSULATOR, urgent care, hospital, or halfway...) When possible be specific @ -No Did you speak to anyone other than the patient for history (EMS, parent, family, police, friend...)? What history was obtained from this source @ -No Did you review nursing and triage notes (agree or disagree)? Why? @ -I reviewed and agree with nursing and triage notes Were old charts reviewed (outside hosp., previous admission, EMS record, old EKG, old radiological studies, urgent care reports/EKG's, halfway records)? Report findings @ -No old charts were reviewed Differential Diagnosis (chest pain, altered mental status, abdominal pain women, abdominal pain men, vaginal bleeding, weakness, fever, dyspnea, syncope, headache, dizziness, GI bleed, back pain, seizure, CVA, palpatations, mental health, musculoskeletal)? @ -Differential Dizziness: Benign paroxysmal positional Vertigo, Menieres disease, otitis media, acoustic neuroma, vertebrobasilar insufficiency, cerebellar stroke, encephalitis, hypovolemic, arrhythmia, coronary artery syndrome, anemia, this is not meant to be an all-inclusive list EKG interpreted by me (3pts min.). @ -As above X-rays interpreted by me (1pt min.). @ -None done CT interpreted by me (1pt min.). @ -None done U/S interpreted by me (1pt. min.). @ -None done What testing was considered but not performed or refused? (CT, X-rays, U/S, labs)? Why? @ -None What meds were considered but not given or refused? Why? @ -None Did you discuss the management of the patient with other professionals (professionals i.e. , PA, CORK INSULATOR, lab, RT, psych nurse, social media campaign manager, casting finisher, teacher, geological technical officer, mattress spring encaser)? Give summary @ -No Was smoking cessation discussed for >3mins.? @ -No Was critical care preformed (if so, how long)? @ -No Were there social determinants of health that impacted care today? How? (Homelessness, low income, unemployed, alcoholism, drug addiction, transportation, low edu. Level, literacy, decrease access to med. care, intermediate, rehab)? @ -No Was there de-escalation of care discussed even if they declined (Discuss DNR or withdrawal of care, Hospice)? DNR status @ -No What co-morbidities impacted this encounter? (DM, HTN, Smoking, COPD, CAD, Cancer, CVA, ARF, Chemo, Hep., AIDS, mental health diagnosis, sleep apnea, morbid obesity)? @ -None Was patient admitted / discharged? Hospital course, mention meds given and route, prescriptions, significant lab abnormalities, going to OR and other pertinent info. @ -Discharged Undiagnosed new problem with uncertain prognosis? @ -No Drug Therapy requiring intensive monitoring for toxicity (Heparin, Nitro, Insulin, Cardizem)? @ -No Were any procedures done? @ -No Diagnosis/symptom? @ -Generalized weakness, dizziness Acute, or Chronic, or Acute on Chronic? @ -Acute Uncomplicated (without systemic symptoms) or Complicated (systemic symptoms)? @ -default Side effects of treatment? @ -No Exacerbation, Progression, or Severe Exacerbation? @ -No Poses a threat to life or bodily function? How? (Chest pain, USA, SC, pneumonia, PE, COPD, DKA, ARF, appy, cholecystitis, CVA, Diverticulitis, Homicidal, Suicidal, threat to staff... and all critical care pts) @ -No (Aniya Cabrera) - Lab Data Lab Results 10/04/22 10/04/22 10/04/22 Range/Units 16:05 16:05 16:05 WBC 5.5 (3.8-10.6) k/uL RBC 4.53 (3.80-5.40) m/uL Hgb 13.4 (11.4-16.0) gm/dL Hct 43.7 (34.0-46.0) % MCV 96.5 (80.0-100.0) fL MCH 29.6 (25.0-35.0) pg MCHC 30.7 L (31.0-37.0) g/dL RDW 13.3 (11.5-15.5) % Plt Count 194 (150-450) k/uL MPV 8.4 Neutrophils % 61 % Lymphocytes % 24 % Monocytes % 7 % Eosinophils % 6 % Basophils % 1 % Neutrophils # 3.4 (1.3-7.7) k/uL Lymphocytes # 1.3 (1.0-4.8) k/uL Monocytes # 0.4 (0-1.0) k/uL Eosinophils # 0.3 (0-0.7) k/uL Basophils # 0.0 (0-0.2) k/uL PT 11.1 (9.0-12.0) sec INR 1.1 (<1.2) Sodium 140 (137-145) mmol/L Potassium 4.5 (3.5-5.1) mmol/L Chloride 105 (98-107) mmol/L Carbon Dioxide 28 (22-30) mmol/L Anion Gap 7 mmol/L BUN 20 H (7-17) mg/dL Creatinine 0.85 (0.52-1.04) mg/dL Est GFR (CKD-EPI)AfAm 72 (>60 ml/min/1.73 sqM) Est GFR (CKD-EPI)NonAf 63 (>60 ml/min/1.73 sqM) Glucose 92 (74-99) mg/dL Calcium 9.3 (8.4-10.2) mg/dL Total Bilirubin 0.4 (0.2-1.3) mg/dL AST 25 (14-36) U/L ALT 17 (4-34) U/L Alkaline Phosphatase 75 (38-126) U/L Troponin I (0.000-0.034) ng/mL Total Protein 6.6 (6.3-8.2) g/dL Albumin 4.0 (3.5-5.0) g/dL TSH (0.465-4.680) mIU/L 10/04/22 10/04/22 Range/Units 16:05 17:46 WBC (3.8-10.6) k/uL RBC (3.80-5.40) m/uL Hgb (11.4-16.0) gm/dL Hct (34.0-46.0) % MCV (80.0-100.0) fL MCH (25.0-35.0) pg MCHC (31.0-37.0) g/dL RDW (11.5-15.5) % Plt Count (150-450) k/uL MPV Neutrophils % % Lymphocytes % % Monocytes % % Eosinophils % % Basophils % % Neutrophils # (1.3-7.7) k/uL Lymphocytes # (1.0-4.8) k/uL Monocytes # (0-1.0) k/uL Eosinophils # (0-0.7) k/uL Basophils # (0-0.2) k/uL PT (9.0-12.0) sec INR (<1.2) Sodium (137-145) mmol/L Potassium (3.5-5.1) mmol/L Chloride (98-107) mmol/L Carbon Dioxide (22-30) mmol/L Anion Gap mmol/L BUN (7-17) mg/dL Creatinine (0.52-1.04) mg/dL Est GFR (CKD-EPI)AfAm (>60 ml/min/1.73 sqM) Est GFR (CKD-EPI)NonAf (>60 ml/min/1.73 sqM) Glucose (74-99) mg/dL Calcium (8.4-10.2) mg/dL Total Bilirubin (0.2-1.3) mg/dL AST (14-36) U/L ALT (4-34) U/L Alkaline Phosphatase (38-126) U/L Troponin I <0.012 (0.000-0.034) ng/mL Total Protein (6.3-8.2) g/dL Albumin (3.5-5.0) g/dL TSH 1.730 (0.465-4.680) mIU/L Disposition <Farhad Osullivan - Last Filed: 10/04/22 16:18> Is patient prescribed a controlled substance at d/c from ED?: No <Aniya Cabrera - Last Filed: 10/04/22 21:24> Clinical Impression: Dizziness Disposition: HOME SELF-CARE Condition: Stable Instructions (If sedation given, give patient instructions): Dizziness (ED) Referrals: Anish Mendoza DO [Primary Care Provider] - 1-2 days
--- NOTE | 2022-10-04 16:42 | XR ---
EXAMINATION TYPE: XR chest 2V DATE OF EXAM: 10/04/2022 4:38 PM COMPARISON: Chest radiographs from 08/23/2016. TECHNIQUE: XR chest 2V Frontal and lateral views of the chest. CLINICAL INDICATION:Female, 87 years old with history of sob dizziness; FINDINGS: Lungs/Pleura: There is no evidence of pleural effusion, focal consolidation, or pneumothorax. Pulmonary vascularity: Unremarkable. Heart/mediastinum: Cardiomediastinal silhouette is unremarkable. Musculoskeletal: No acute osseous pathology. IMPRESSION: No acute cardiopulmonary disease/process.
[2022-10-04 16:56] LABS: Basophils % (A) 1 %; Eosinophils # (A) 0.3 k/uL (0-0.7); Eosinophils % (A) 6 %; HCT 43.7 % (34.0-46.0); HGB 13.4 gm/dL (11.4-16.0); Lymphocytes # (A) 1.3 k/uL (1.0-4.8); Lymphocytes % (A) 24 %; MCH 29.6 pg (25.0-35.0); MCHC 30.7 g/dL (31.0-37.0); MCV 96.5 fL (80.0-100.0); Mean Platelet Volume 8.4; Monocytes # (A) 0.4 k/uL (0-1.0); Monocytes % (A) 7 %; Neutrophils # (A) 3.4 k/uL (1.3-7.7); Neutrophils % (A) 61 %; Platelet Count 194 k/uL (150-450); RBC 4.53 m/uL (3.80-5.40); RDW 13.3 % (11.5-15.5); WBC 5.5 k/uL (3.8-10.6)
[2022-10-04 17:08] LABS: INR 1.1 (<1.2); Prothrombin Time 11.1 sec (9.0-12.0)
[2022-10-04 17:15] VITALS: RESP 18
[2022-10-04 17:15] LABS: ALT 17 U/L (4-34); AST 25 U/L (14-36); African American GFR (CKD) 72 (>60 ml/min/1.73 sqM); Alkaline Phosphatase 75 U/L (38-126); Anion Gap 7 mmol/L; Blood Urea Nitrogen 20 mg/dL (7-17); Calcium 9.3 mg/dL (8.4-10.2); Carbon Dioxide 28 mmol/L (22-30); Chloride 105 mmol/L (98-107); Glucose 92 mg/dL (74-99); Non-African American GFR(CKD) 63 (>60 ml/min/1.73 sqM); Potassium 4.5 mmol/L (3.5-5.1); Sodium 140 mmol/L (137-145); Total Bilirubin 0.4 mg/dL (0.2-1.3); Total Protein 6.6 g/dL (6.3-8.2)
--- NOTE | 2022-10-04 17:23 | CT ---
EXAMINATION TYPE: CT brain cspine wo con CT DLP: 1488 mGycm, Automated exposure control for dose reduction was used. DATE OF EXAM: 10/04/2022 5:09 PM COMPARISON: MR 09/11/2021. CLINICAL INDICATION:Female, 87 years old with history of weakness dizziness leaning to right; Weaknes s, dizziness, leaning to the right. TECHNIQUE: Brain: Multiple axial CT images of the brain were obtained without IV contrast. Cspine: Axial CT images from the skull base to the inferior aspect of T2 we obtained without intraven ous contrast. Coronal and sagittal reformatted images were also reviewed. FINDINGS: Brain: Extra-axial spaces: No abnormal extra-axial fluid collections. Ventricular system: Dilatation in proportion to cerebral atrophy. Cerebral parenchyma: Cerebral atrophy. No acute intraparenchymal hemorrhage or mass effect. The guerrero -white junction is well differentiated. Scattered hypoattenuating areas are seen within the white mat ter. Cerebellum: Unremarkable. Mass effect: No evidence of midline shift. Intracranial vasculature: Atherosclerotic calcifications of the intracranial vessels. Soft tissues: Normal. Calvarium/osseous structures: No depressed skull fracture. Paranasal sinuses and mastoid air cells: Clear. Visualized orbits: Bilateral aphakia Cervical spine: Fracture: None. Osseous structures: Multilevel degenerative disc disease changes with endplate spurring and disc oste ophyte complex's. Vertebral alignment: Scoliosis changes to the spine. Spinal canal/Neural Foramina: Disc osteophyte complexes at C2-C3 through C6-C7. With at least mild sp inal canal stenosis. Facet joint uncovertebral joint arthropathy scattered throughout the cervical sp ine with varying degrees of neural foraminal stenosis. Neck soft tissues: Prevertebral soft tissues are within normal limits. Other: The airway is patent. Atherosclerosis of the arterial vasculature including the aortic arch an d carotid bifurcations. IMPRESSION: 1. No acute intracranial process. If there remains concern for acute/subacute CVA consider MRI. 2. Nonspecific white matter changes, likely secondary to chronic small vessel ischemic disease. 3. No evidence of cervical spine fracture. 4. Moderate to severe multilevel degenerative disc disease.
[2022-10-04] MEDS ORDERED: MECLIZINE 12.5 MG TAB PO STA (19:18)
[2022-10-04 20:32] VITALS: BP 142/65; PULSE 60; TEMP 98.1
== END 2022-10-04 20:32 | disposition home or self-care (01) ==
LOC: EC 15:39
DX: R42 Dizziness and giddiness (principal); E78.5 Hyperlipidemia, unspecified; I25.2 Old myocardial infarction; E07.9 Disorder of thyroid, unspecified; Z79.82 Long term (current) use of aspirin; Z79.890 Hormone replacement therapy; Z79.899 Other long term (current) drug therapy
CPT/HCPCS: 36415; 70450; 71046; 72125; 80053; 84443; 84484; 85025; 85610; 93005; 99284

== ENCOUNTER → 2022-11-09 | Outpatient (CLI) | payer MEDICARE, BC ==
--- NOTE | 2022-11-09 13:19 | MR ---
EXAMINATION TYPE: MR brain and iac wo/w con DATE OF EXAM: 11/09/2022 12:08 PM COMPARISON: NONE HISTORY: Hearing loss TECHNIQUE: Multiplanar and multispin-echo imaging of the brain was performed both before and after the administr ation of contrast. High-resolution images are obtained of the internal auditory canals performed uti lizing 8 mL intravenous Gadavist contrast. The ventricles, basal cisterns and sulci overlying the cerebral convexities are mildly enlarged. There is evidence of mild to moderate periventricular white matter ischemic demyelination. Remote deep white matter insults are also noted. There is no evidence for midline shift or mass effect. Acute intracranial hemorrhage or extra-axial collection is not evident. There are no abnormal areas of increased or decreased signal intensity within the brain parenchyma. High-resolution imaging of the internal auditory canals fails demonstrate evidence for an enhancing a coustic schwannoma or cerebellopontine cistern angle mass. Following contrast administration, there is no evidence for pathologic enhancement or enhancing mass. The paranasal sinuses and mastoid air cells are well-aerated. IMPRESSION: 1. No evidence of acoustic schwannoma or cerebellopontine angle mass.
== END | disposition home or self-care (01) ==
LOC: RADMRIMAIN 10:35
PROVIDERS: ATTEND Family Medicine
DX: R42 Dizziness and giddiness (principal); H91.90 Unspecified hearing loss, unspecified ear
CPT/HCPCS: 70553; A9585